=== PATIENT | female | born 1960 | race Caucasian/White ===

== ENCOUNTER → 2017-11-29 16:01 | Outpatient (CLI) | payer BC, SELFPAY ==
--- NOTE | 2017-11-29 16:15 | CT_ITS ---
STUDY: CT ABDOMEN AND PELVIS WITHOUT CONTRAST REASON FOR EXAM: Female, 57 years old. Right flank pain. History of kidney stones. RADIATION DOSAGE (If Supplied By Facility): CTDIvol = ( 8.44 ) mGy, DLP = ( 363.23 ) mGycm TECHNIQUE: Transaxial images were obtained from the dome of the diaphragm to the symphysis pubis without oral contrast, and without intravenous contrast. Sagittal and coronal images were reconstructed. Individualized dose optimization techniques were used for this CT. COMPARISON: None. FINDINGS: Limited views through the lower chest suggest a deflated right breast implant. Lung bases are clear. Normal liver. There is non-visualization of the gallbladder, which may be secondary to either contraction or a prior cholecystectomy. Normal spleen. Normal pancreas. Normal bilateral adrenal glands. Normal right kidney. Normal left kidney. No definite renal or ureteral stones are seen. There is no hydronephrosis on either side. Evaluation of the GI tract is limited by absence of oral contrast. Cannot exclude stomach wall thickening. No dilated loops of bowel or evidence for obstruction. Cannot exclude segmental thickening of the amaya of the small or large bowel. Cannot exclude enteritis or colitis. Moderate to marked diffuse fecal retention. Appendix within normal limits. Normal abdominal aorta. Normal inferior vena cava. There is retroperitoneal lymphadenopathy with enlarged nodes greater than 10-15mm in the short axis. Normal urinary bladder. There is absence of the uterus consistent with a prior hysterectomy. Normal abdominal wall. There are diffuse degenerative changes of the visualized lumbar spine. Bilateral pars defects of L5 with mild anterolisthesis. CT/Abdomen/Pelvis without Cont IMPRESSION: There is no definite acute abdomen abnormality in the abdomen and pelvis. Evaluation of the GI tract is limited. Electronically Signed: Dominic Hunter MD at 18:43 EST , Service support ,
== END ==
PROVIDERS: Visit Provider Family Medicine Geriatric Medicine
DX: N39.0 Urinary tract infection, site not specified (principal)
CPT/HCPCS: 74176; 87086; 87088

== ENCOUNTER → 2018-05-17 12:05 | Outpatient (CLI) | payer BC, SELFPAY ==
[2018-05-17 12:44] LABS: Color, Urine Yellow (Yellow); Glucose, Dipstick Normal (Normal); Ketone-Dipstick Negative (Negative); Leukocyte Esterase-Dipstick 25 /ul (Negative); Nitrite-Dipstick Negative (Negative); Occult Blood-Urine 25 /ul (Negative); Protein-Dipstick Negative (Negative); Specific Gravity, Urine 1.015 (1.002-1.030); Urine Bilirubin Dipstick Negative (Negative); Urine Clarity Clear (Clear); Urine Urobilinogen Normal (Normal); Urine pH 6.5 (5.0 - 8.0)
== END ==
PROVIDERS: Family Provider Family Medicine Geriatric Medicine; PCP Family Medicine Geriatric Medicine; Visit Provider Urology
DX: R10.30 Lower abdominal pain, unspecified (principal)
CPT/HCPCS: 81002; 87086; 87088

== ENCOUNTER → 2018-05-21 13:22 | Outpatient (CLI) | payer BC, SELFPAY ==
--- NOTE | 2018-05-21 13:25 | RAD_ITS ---
CLINICAL HISTORY: Female, 57 years old. Recurrent urinary tract infections. Bilateral flank pain. PROCEDURE: Cystogram with fluoroscopic imaging. FLUOROSCOPY TIME (if supplied): (0:56) minutes/seconds TECHNIQUE: Initial detail assembler image of the abdomen and pelvis (KUB) is obtained. 300 mL of Cystografin iodinated contrast filled the urinary bladder in a retrograde fashion through the urinary catheter under fluoroscopic observation by Dr. Rhoades. Radiology nurse Ale had previously inserted in the urinary catheter into the bladder. Imaging was performed. Initially the urinary catheter drained only 70 cc of contrast. Patient then had the urinary catheter removed and voided. FINDINGS: Urinary bladder is distended with identified contrast but shows no reflux, filling defect or extravasation of contrast. Postvoid imaging shows no urinary bladder contrast. RAD/Voiding Urethrocystography IMPRESSION: Incomplete emptying of the urinary bladder of iodinated contrast with urinary catheter in place. Complete emptying of urinary bladder of iodinated contrast with normal voiding. Clinical correlation recommended for bladder outlet syndrome. Otherwise, negative cystogram study. Electronically Signed: Scott Rhoades, at 15:06 EDT Tel , Service support ,
--- NOTE | 2018-05-21 13:29 | CT_ITS ---
STUDY: CT ABDOMEN AND PELVIS WITH CONTRAST REASON FOR EXAM: Female, 57 years old. Flank pain, UTI RADIATION DOSAGE (If Supplied By Facility): CTDIvol = ( 12.22 ) mGy, DLP = ( 1057.93 ) mGycm TECHNIQUE: Transaxial images were obtained from the dome of the diaphragm to the symphysis pubis without oral contrast. 100 ml of Isovue 250 contrast was administered. Sagittal and coronal images were reconstructed. Delayed images are performed. Individualized dose optimization techniques were used for this CT. COMPARISON: 11/29/2017 FINDINGS: The visualized lung bases are unremarkable. The visualized portions of the heart are within normal limits. There is partial visualization of bilateral breast implants. The right breast implant appears to be ruptured. Normal liver. There is non-visualization of the gallbladder, which may be secondary to either contraction or a prior cholecystectomy. Normal spleen. Normal pancreas. Normal bilateral adrenal glands. There is a 1 cm cyst at the superior pole of the right kidney. Normal left kidney. Normal visualized stomach. Normal small intestine. Normal colon. The appendix is visualized and appears normal. Normal abdominal aorta. Normal inferior vena cava. Normal retroperitoneum. Normal urinary bladder. There is absence of the uterus consistent with a prior hysterectomy. Normal abdominal wall. There are diffuse degenerative changes of the visualized lumbar spine. CT/Abdomen/Pelvis W IV Cont ONLY IMPRESSION: No bowel obstruction or acute renal pathology. Nonacute findings, as detailed above. Electronically Signed: Leonard Lloyd DO at 14:44 EDT Tel , Service support ,
--- NOTE | 2018-05-21 14:10 | NURSING ---
16 TURKISH TORRES CATHETER INSERT USING STERILE TECHNIQUE FOR CYSTOGRAM. PT TOLERATED WELL. CATHETER REMOVED AFTER 10ML BALLOON DEFLATED FOLLOWING CYSTOGRAM.
== END ==
PROVIDERS: Family Provider Family Medicine Geriatric Medicine; PCP Family Medicine Geriatric Medicine; Visit Provider Urology
DX: N10 Acute pyelonephritis (principal)
CPT/HCPCS: 51600; 51702; 74177; 74455; Q9965; Q9967

== ENCOUNTER 2018-05-22 17:50 | Emergency (ER) | payer BC, SELFPAY ==
[2018-05-22 17:51] VITALS: BP 120/78; PULSE 84; RESP 16; TEMP 37; O2SAT 97; BMI 29.2
[2018-05-22] MEDS: MethylPREDNISolone 125 MG/2 ML Vial IV (18:13)
[2018-05-22] MEDS: DiphenhydrAMINE 50 MG/ML Syringe 25 MG IV (18:13)
[2018-05-22] MEDS: 0.9% Normal Saline 1,000 ML 150 ML IV (18:13)
[2018-05-22 18:16] VITALS: O2SAT 92
[2018-05-22 19:42] VITALS: BP 123/71; PULSE 75; RESP 18; O2SAT 95
[2018-05-22 20:20] VITALS: BP 114/62; PULSE 74; RESP 17; O2SAT 93
[2018-05-22 21:22] VITALS: BP 100/59; PULSE 68; RESP 18; O2SAT 99
--- NOTE | 2018-05-22 21:49 | ED.VISSUMM ---
- ER Visit Summary Date of Service: 05/22/18 Chief Complaint: [Allergic reaction] History of Present Illness: The patient is a 57 F [presents the emergency department an allergic reaction to bee sting. Patient states that she was stung by a bee on the left hand 15 minutes ago. Patient did use her EpiPen. Patient also took 2 Benadryl at home. Patient complains of throat tightness and some wheezing. Patient has history of anaphylactic reaction to bee stings.] Physical Examination: [HEENT-PERRLA, EOMI. Cranial nerves II through XII grossly intact. TMs clear. Mucous membranes moist. No adenopathy. No angioedema Cardiovascular-regular rate and rhythm without murmur or ectopy Lungs-good aeration bilaterally, patient has faint X Tory wheezes bilaterally. No accessory muscle use or retractions. Abdomen-normoactive bowel sounds, soft, nontender, no rebound or rigidity, no peritoneal signs. Skin exam-no rashes noted. Patient had one small area of faint erythema to the left hand at the base of the thumb. Extremities-intact ?4, normal range of motion, normal pulses, atraumatic] Test Results: [None indicated] Emergency Department Course and Treatment: [Patient was medicated with Solu-Medrol, Benadryl, and Pepcid. Patient was observed for 4 hours. Patient symptoms completely resolved.] Treatment Plan: [Patient will be dispensed an EpiPen and will be given a prescription for prednisone for 3 days] Disposition: [Discharged home stable condition] Impression: [Allergic reaction to bee sting] This note was generated with [employer] dictation software. It may contain incorrect words, spelling, and punctuation that were not noted in review of the chart prior to signing ED Disposition - Plan for ED Patient: Chief Complaint: Allergic Reaction Referrals: Magdy Tate Chi, MD [Primary Care Provider] -
--- NOTE | 2018-05-22 21:51 | ED.DEP ---
ED Disposition - Plan for ED Patient: Chief Complaint: Allergic Reaction Instructions: ED Bite Sting Insect Gen Allergic React Prescriptions: Prednisone [Deltasone] 20 mg PO BID #6 tab Referrals: Magdy Tate Chi, MD [Primary Care Provider] - As Needed
[2018-05-22 21:59] VITALS: BP 120/88; PULSE 73; RESP 20; O2SAT 95
== END 2018-05-22 22:00 | disposition home or self-care (01) ==
LOC: ED 18:51
PROVIDERS: Emergency Provider Emergency Medicine; Family Provider Family Medicine Geriatric Medicine; PCP Family Medicine Geriatric Medicine
DX: T63.441A Toxic effect of venom of bees, accidental (unintentional), initial encounter (principal); R06.2 Wheezing; R09.89 Other specified symptoms and signs involving the circulatory and respiratory systems; Y92.9 Unspecified place or not applicable
CPT/HCPCS: 96365; 96368; 96372; 96375; 99285; J7030; A4216; J3490

== ENCOUNTER 2018-06-15 17:31 | Emergency (ER) | payer BC, SELFPAY ==
[2018-06-15 17:32] VITALS: BP 117/77; PULSE 80; RESP 24; TEMP 36.6; O2SAT 98; BMI 28.1
[2018-06-15] MEDS: Racepinephrine HCl 0.5 ML VIAL.NEB. INHALATION (17:43)
[2018-06-15 17:44] VITALS: PULSE 87; RESP 16
[2018-06-15] MEDS: MethylPREDNISolone 125 MG/2 ML Vial IV (17:46)
[2018-06-15 18:02] VITALS: BP 122/60; PULSE 82; RESP 16; O2SAT 97
[2018-06-15 20:00] VITALS: BP 122/84; PULSE 79; RESP 16; O2SAT 94
--- NOTE | 2018-06-15 22:31 | ED.VISSUMM ---
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 She was stung 1050 minutes prior to presentation. She administered an EpiPen. She presents because of throat swelling difficulty breathing. She denies difficulty swallowing or breathing. There is been no drooling. There is change in voice. She denies orthostatic symptoms. Denies nausea, vomiting diarrhea. She denies rash. Physical Examination: Patient appears in respiratory distress with retraction and audible stridor. There is no swelling of the tongue or uvula. Pupils equal round reactive. Extra muscle intact. Nares patent. Lungs reveal no wheeze rales rhonchi. Heart is rapid and regular without murmur, gallop or rub. Abdomen soft nontender. There is no urticaria. Test Results: None Emergency Department Course and Treatment: IV was established. Since she administered an EpiPen and Benadryl she was treated with Pepcid and Solu-Medrol. She was observed for greater than 4 hours. Her symptoms have totally resolved and no recurrence. Treatment Plan: Since pharmacies are closed she was given an EpiPen from the emergency department and a prescription for EpiPen. Disposition: Discharged home in stable improved condition Impression: Anaphylaxis with angioedema secondary to hymenoptera envenomation This note was generated with [employer] dictation software. It may contain incorrect words, spelling, and punctuation that were not noted in review of the chart prior to signing ED Disposition - Plan for ED Patient: Disposition: Home or Assisted Living Chief Complaint: Allergic Reaction Instructions: ED Angioedema, ED Allergic Reaction General Other Prescriptions: Epinephrine [Epi Pen] 0.3 mg IM X1 #1 syringe Referrals: Magdy Tate Chi, MD [Primary Care Provider] - As Needed
[2018-06-15 23:34] VITALS: BP 115/73; PULSE 68; RESP 16; O2SAT 95
== END 2018-06-15 23:34 | disposition home or self-care (01) ==
PROVIDERS: Emergency Provider Emergency Medicine; Family Provider Family Medicine Geriatric Medicine; PCP Family Medicine Geriatric Medicine
DX: T63.441A Toxic effect of venom of bees, accidental (unintentional), initial encounter (principal); T78.2XXA Anaphylactic shock, unspecified, initial encounter; T78.3XXA Angioneurotic edema, initial encounter; F32.9 Major depressive disorder, single episode, unspecified
CPT/HCPCS: 94640; 96372; 96374; 96375; 99284; A4216; J3490

== ENCOUNTER → 2018-09-25 13:12 | Outpatient (CLI) | payer BC, SELFPAY ==
--- NOTE | 2018-09-25 13:15 | BI_ITS ---
MAMMOGRAPHY - BILATERAL DIAGNOSTIC REASON FOR EXAM: Female, 58 years old. History of right implant rupture. PERTINENT HISTORY: Non-contributory. TECHNIQUE: Digital bilateral breast azeem (3D mammographic acquisition) in the CC and MLO projections. 2-D mediolateral oblique (MLO) and craniocaudad (CC) views of both breasts were obtained. CAD: Full Field Digital Mammography with Computer Added Detection was performed. COMPARISON: No comparison mammograms available at this time. If any prior films become available, an addendum to this report can be generated. FINDINGS: Breast Composition: There are scattered areas of fibroglandular density. There are no dominant masses or suspicious calcifications. There is evidence of retraction and rupture of the right breast implant. The left breast implant is unremarkable. No other significant abnormalities are identified. BI/DIAG MAMM W/CAD, BILAT IMPRESSION: Retraction and rupture of the right breast implant. ASSESSMENT CATEGORY: BIRADS Category 2: Benign. A letter regarding these results will be sent to the patient by the facility within 30 days. Approximately 10% of breast cancers are not detected by mammography. A normal mammogram should not delay biopsy of a clinically suspicious abnormality. Electronically Signed: Roger Antonio MD at 15:27 EST Tel [phone], Service support ,
--- OUTSIDE RECORDS SUMMARY | 2018-11-11 17:09 | XMS RPT_ITS ---
:1960 Author Organization OHIP Care Team Providers Name Role Phone Bebeto, Magdy Chi Attending Unavailable Jo Vergara Attending Unavailable Jo Vergara Referring Unavailable Bebeto, Magdy Chi Primary Care Unavailable Jo Vergara Attending Unavailable Bebeto, Magdy Chi Primary Care Unavailable Jo Vergara Referring Unavailable Bebeto, Magdy Chi Primary Care Unavailable Ungur, Remus Attending Unavailable Bebeto, Magdy Chi Primary Care Unavailable Robert Garcia Attending Unavailable Jerry Dillard Attending Unavailable Bebeto, Magdy Chi Referring Unavailable Jerry Dillard Attending Unavailable Jerry Dillard Referring Unavailable Bebeto, Magdy Chi Primary Care Unavailable PROBLEMS PROBLEMS DATE TYPE CONDITION / CODE ATTENDING STATUS SOURCE 09/24/2018 Unknown N64.4 - Mastodynia Jerry Dillard Active [place] / N64.4(ICD-10) [facility] Repository 09/24/2018 Unknown Z98.82 - Breast Jerry Dillard Active [place] implant status / Community Z98.82(ICD-10) Hospital Repository 09/24/2018 Unknown T85.43XA - Leakage Jerry Dillard Active [place] of breast [facility] prosthesis and Hospital implant, initial Repository encounter / T85.43XA(ICD-10) 09/24/2018 Unknown N65.1 - Jerry Dillard Active [facility] Disproportion of Community reconstructed Hospital breast / Repository N65.1(ICD-10) 09/24/2018 Unknown T85.44XA - Capsular Jerry Dillard Active [place] contracture of Community breast implant, Hospital initial encounter / Repository T85.44XA(ICD-10) 09/23/2018 Unknown R06.02 - Shortness Garcia, Robert Active [facility] of breath / Community R06.02(ICD-10) Hospital Repository 09/23/2018 Unknown T63.441A - Toxic Ungur, Remus Active [place] effect of venom of [facility] bees, accidental Hospital (unintentional), Repository initial encounter / T63.441A(ICD-10) PROCEDURES PROCEDURES No Procedure Records FoundRESULTS RESULTS DIAG MAMM W/CAD, Observed: 09/25/2018 Status: F Source: [place] BILAT 1:15 PM [facility] REPOSITORY [facility] Imaging Services [address] [place] [address] DIAG MAMM W/CAD, BILAT MR#: [id number] Acct: [id number] Name: PANCHO FIGUEROA Rep #: [id number] : 1960 F 58 From: Roger Antonio MD PCP: Bebeto GALLEGOS,Magdy [facility] Status: REG CLI Study: DIAG MAMM W/CAD, BILAT Date of Exam: 09/25/18 Exam# [id number] Ordering Dr: Jerry Dillard MD ADDENDUM by Roger Antonio MD on 10/02/18 at 0812 ADDENDUM This is an addendum report. Prior ocular examination dated June 13, 2013 have been made available. Stable examination. Complete retraction of the right breast implant. Electronically Signed: Roger Antonio MD at 8:12 EST Tel [phone], Service support , 10/02/18811 Date cc: Jerry Dillard MD; Magdy Tate MD * Signed ADDENDUM by Roger Antonio MD on 10/02/18 at 0812 BI/DIAG MAMM W/CAD, BILAT 10/02/18817 Date cc: Jerry Dillard MD; Magdy Tate MD * Signed MAMMOGRAPHY - BILATERAL DIAGNOSTIC REASON FOR EXAM: Female, 58 years old. History of right implant rupture. PERTINENT HISTORY: Non-contributory. TECHNIQUE: Digital bilateral breast azeem (3D mammographic acquisition) in the CC and MLO projections. 2-D mediolateral oblique (MLO) and craniocaudad (CC) views of both breasts were obtained. CAD: Full Field Digital Mammography with Computer Added Detection was performed. COMPARISON: No comparison mammograms available at this time. If any prior films become available, an addendum to this report can be generated. FINDINGS: Breast Composition: There are scattered areas of fibroglandular density. There are no dominant masses or suspicious calcifications. There is evidence of retraction and rupture of the right breast implant. The left breast implant is unremarkable. No other significant abnormalities are identified. BI/DIAG MAMM W/CAD, BILAT IMPRESSION: Retraction and rupture of the right breast implant. ASSESSMENT CATEGORY: BIRADS Category 2: Benign. A letter regarding these results will be sent to the patient by the facility within 30 days. Approximately 10% of breast cancers are not detected by mammography. A normal mammogram should not delay biopsy of a clinically suspicious abnormality. Electronically Signed: Roger Antonio MD at 15:27 EST Tel [phone], Service support , CC: Jerry Dillard MD; Magdy Tate MD Senior Test Analyst: Signed PLASTIC SURGERY Observed: 2018 Status: F Source: [facility] VISIT REPORT 10:47 AM [facility] REPOSITORY [facility] [address] [place] [address] OFFICE VISIT Date of Service: 09/18/18 MR#: [id number] Acct: [id number] Name: PANCHO FIGUEROA Rep #: [id number] : 1960 Provider: Jerry Dillard MD Age/Sex: 57/F Location: [facility] Status: Signed Intake Vital Signs09/18/18 Height 5 ft 1.5 in 09/18/18 Weight: 157 lb 6 oz Intake Visit Reasons: evaluation breast reconstruction Chucking Machine Set Up Operator Required: No Accompanied by: None Is patient in pain?: Yes (BILATERAL BREAST PAIN TIGHTNESS ) Pain scale (1-10): 1 Allergies bee venom protein (honey bee) Allergy (Severe, Verified 09/18/18 11:41) Anaphylaxis Sulfa (Sulfonamide Antibiotics) Allergy (Verified 09/18/18 11:41) ALLERGY Medications omeprazole magnesium 20 mg tablet,delayed release 20 mg PO DAILY 09/18/18 [History Confirmed 09/18/18] paroxetine 40 mg tablet 40 mg PO DAILY 09/18/18 [History Confirmed 09/18/18] Is last menstrual period known: No Post menopausal: Yes Patient : No PFSH Medical History Anxiety and depression (Acute) GERD (gastroesophageal reflux disease) (Acute) Gallstones (Acute) History of endoscopy (Acute) Kidney stones (Acute) UTI (urinary tract infection) (Acute) Surgical History History of 3 sections (Acute) History of abdominoplasty (Acute) History of breast augmentation (Acute) History of cholecystectomy (Acute) History of colonoscopy (Acute) History of partial hysterectomy (Acute) Family History Unknown No problems noted. Social History Smoking Status: Never smoker alcohol intake: current substance use type: does not use additional social history: DOES NOT USE ASPIRIN DOES NOT USE IBUPROFEN HPI evaluation breast reconstruction: Details: HISTORY OF PRESENT ILLNESS 58 year old woman presents with increased tightness in her right breast and the right breast being a little smaller than the left breast. She had saline implants placed back in 1999. She is not sure if the implants were placed on top of the muscle or underneath the muscle. Before the implants, her bra size was 36B and after the implants it was 38D. She denies any trauma. She denies any nipple discharge. She states there is some discomfort when the implants are bumped, more so on the right. She also has some associated neck and thoracic back pain that has been increasing over the last couple of years. She thinks her last mammogram was about 4 years ago. She recently had an Ultrasound done of the abdomen because of urinary issues, and she was told that the right breast implant was ruptured. She denies any fever. She presents at this time for further evaluation and treatment. REVIEW OF SYSTEMS General - Denies fever, fatigue, and weight loss. Eyes - Denies cataracts and glaucoma. ENT - Denies nasal congestion and sore throat. Endocrine - Denies excessive thirst and urination. Had saline breast implants placed in 1999. Skin - Denies suspicious lesions and skin cancer. Musculoskeletal - Denies joint pain, joint stiffness, weakness of muscles and joints, back pain, and arthritis. Neuro - Denies headaches. Cardiovascular - Denies chest pain, fatigue, and shortness of breath with exertion. Psych - Denies anxiety. Has depression. Respiratory - Denies chronic cough and shortness of breath. Gastrointestinal - Denies nausea, vomiting, diarrhea, and constipation. Hematologic - Denies abnormal bruising and bleeding. Genitourinary - Has hematuria and incontinence. Denies urinary frequency. PHYSICAL EXAMINATION General - Alert and Oriented. Bra size is 38 D. Before the implants it was 36 B. HEENT - PERRL. EOMI. Throat is clear. Neck - Supple and no bony tenderness. There is some pericervical soft tissue tenderness. No cervical adenopathy. Breasts - Soft and no masses palpable. Slight tenderness with palpation, more so on the right. No axillary adenopathy. Some thickened scarring present on the right from a capsular contracture. The right breast is a little smaller than the left breast. Distance from the midclavicular line on the left to the nipple is 29 cm and from the nipple to the inframammary fold is 10 cm. Distance from the midclavicular line on the right to the nipple is 27 cm and from the nipple to the inframammary fold is 9 cm. The nipple areolar complex diameter is 7 cm bilaterally. Stage II ptosis present. Lungs - Clear to auscultation. Heart - Regular rate and rhythm. Abdomen - Soft and nondistended. Extremities - FROM. No axillary adenopathy. Radial pulses are palpable. Back - No bony tenderness. There is some perivertebral soft tissue tenderness in the thoracic area. Neuro - CN II-XII grossly intact. Psych - Normal mood and affect. ASSESSMENT 1. Bilateral breast pain. 2. Ruptured right breast implant. 3. Disproportion reconstructed breast. 4. Capsular contracture right breast implant. 5. History of bilateral saline breast implants. PLAN Discussed various breast reconstruction options with the patient. Since she is not sure if the implants were placed on top of the muscle or underneath the muscle, we will need to get the old records. She states the surgery was done at a [facility] in [place]. With the degree of ptosis present, I suspect the implants were placed on top of the muscle. Her last mammogram was done about 4 years ago. Will need a mammogram before surgery. Depending on the mammogram results, may need an MRI. Patient states she doesn't need the implants anymore and would like to have them removed if there is evidence of rupture. She is not interested in having the implants replaced at this time. Since there is still some shape to the right breast, a leak can still occur as long as the capsule is intact. Once there is a rent in the capsule, the saline will leak out and the breast will flatten. That hasn't happened yet. Once removed, may need a capsulectomy on the right because of the contracture which can also contribute to a smaller shape. She would like improved shape and contour of the breast. Because of her ptosis, a mastopexy would provide that improvement. If the implants were placed underneath the muscle, then the mastopexy can be done at the same time. If the implants were placed on top of the muscle, then the mastopexy would be done at a later date to allow adequate healing. There is increased risk of wound healing problems and nipple vascular issues if the implants were placed on top of the muscle even if done at a later date. The risk is greater if done at the same time. Patient will decide if she wants to take that risk at the appropriate time. She had also mentioned a possible breast reduction. At the present time, it is hard to tell if some of her back and neck pain is due her large breasts or due to the presence of her implants. In this situation, after the implants are removed, would wait several months. If her symptomatology is the same, then can send a letter to her insurance carrier for medical approval. She will followup for further evaluation after her studies are completed and the old records have been obtained. If ruptured, will send a letter to her insurance carrier for medical approval. She is aware that insurance may not cover these procedures and that she would be financially responsible. She is aware of that possibility and wishes to proceed. Assessment AND Plan Problems 1. Painful breasts N64.4 2. Ruptured right breast implant T85.43XA 3. Disproportion of reconstructed breast N65.1 4. Capsular contracture of breast implant T85.44XA 5. H/O bilateral breast implants Z98.82 Orders Orders: Coding Level of Care Code Off vis,new,level 4 Diagnoses Painful breasts N64.4 Ruptured right breast implant T85.43XA Disproportion of reconstructed breast N65.1 Capsular contracture of breast implant T85.44XA H/O bilateral breast implants Z98.82 09/22/18 1047 <Electronically signed by Jerry Dillard MD> Date [facility] Signature: Date (if applicable) CC: Magdy Tate MD EMERGENCY DEPARTMENT Observed: 06/15/2018 Status: F Source: [facility] SUMMARY 10:34 PM [facility] REPOSITORY [facility] Medical Records Department [address] [place] [address] Emergency Department Summary 06/15/18 2231 MR#: [id number] Acct: [id number] Name: PANCHO FIGUEROA Rep #: [id number] : 1960 57 From: Robert Garcia MD PCP: Magdy Tate MD, Chi Status: REG ER - ER Visit Summary Date of Service: 06/15/18 Chief Complaint: Difficulty breathing and throat swelling after hymenoptera envenomation History of Present Illness: The patient is a 57 F who has 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 She was stung 1050 minutes prior to presentation. She administered an EpiPen. She presents because of throat swelling difficulty breathing. She denies difficulty swallowing or breathing. There is been no drooling. There is change in voice. She denies orthostatic symptoms. Denies nausea, vomiting diarrhea. She denies rash. Physical Examination: Patient appears in respiratory distress with retraction and audible stridor. There is no swelling of the tongue or uvula. Pupils equal round reactive. Extra muscle intact. Nares patent. Lungs reveal no wheeze rales rhonchi. Heart is rapid and regular without murmur, gallop or rub. Abdomen soft nontender. There is no urticaria. Test Results: None Emergency Department Course and Treatment: IV was established. Since she administered an EpiPen and Benadryl she was treated with Pepcid and Solu-Medrol. She was observed for greater than 4 hours. Her symptoms have totally resolved and no recurrence. Treatment Plan: Since pharmacies are closed she was given an EpiPen from the emergency department and a prescription for EpiPen. Disposition: Discharged home in stable improved condition Impression: Anaphylaxis with angioedema secondary to hymenoptera envenomation This note was generated with [employer] dictation software. It may contain incorrect words, spelling, and punctuation that were not noted in review of the chart prior to signing ED Disposition - Plan for ED Patient: Disposition: Home or Assisted Living Chief Complaint: Allergic Reaction Instructions: ED Angioedema, ED Allergic Reaction General Other Prescriptions: Epinephrine [Epi Pen] 0.3 mg IM X1 #1 syringe Referrals: Magdy Tate Chi, MD [Primary Care Provider] - As Needed What to do if you have Problems For any increased pain, shortness of breath, bleeding, nausea or vomiting, chest pain, or any unexpected problems, contact your Primary Care Provider. Call [facility] ([phone]) or report to the closest Emergency Room. Call 911 if necessary. 06/15/182233 <Electronically signed by Robert Garcia MD> Date Robert Garcia MD Cosigner Signature (If Indicated): Date CC: Magdy Tate MD DISCHARGE INSTRUCTION Observed: 05/22/2018 Status: F Source: [place] 9:52 PM [facility] REPOSITORY [facility] Medical Records Department [address] [place] [address] [place] [address] Discharge Instruction 05/22/182150 MR#: [id number] Acct: [id number] Name: PANCHO FIGUEROA Rep #: [id number] : 1960 57 From: Bridgre Kaur DO PCP: Magdy Tate MD, Chi Status: REG ER ED Disposition - Plan for ED Patient: Chief Complaint: Allergic Reaction Instructions: ED Bite Sting Insect Gen Allergic React Prescriptions: Prednisone [Deltasone] 20 mg PO BID #6 tab Referrals: Magdy Tate Chi, MD [Primary Care Provider] - As Needed What to do if you have Problems For any increased pain, shortness of breath, bleeding, nausea or vomiting, chest pain, or any unexpected problems, contact your Primary Care Provider. Call [facility] ([phone]) or report to the closest Emergency Room. Call 911 if necessary. 05/22/182151 <Electronically signed by Bridger Kaur DO> Date Bridger Kaur DO Cosigner Signature (If Indicated): Date CC: Magdy Tate MD EMERGENCY DEPARTMENT Observed: 05/22/2018 Status: F Source: [place] SUMMARY 9:51 PM [facility] REPOSITORY [facility] Medical Records Department [address] [place] [address] Emergency Department Summary 05/22/18 2149 MR#: [id number] Acct: [id number] Name: PANCHO FIGUEROA Rep #: [id number] : 1960 57 From: Bridger Kaur DO PCP: Magdy Tate MD, Chi Status: REG ER - ER Visit Summary Date of Service: 05/22/18 Chief Complaint: [Allergic reaction] History of Present Illness: The patient is a 57 F [presents the emergency department an allergic reaction to bee sting. Patient states that she was stung by a bee on the left hand 15 minutes ago. Patient did use her EpiPen. Patient also took 2 Benadryl at home. Patient complains of throat tightness and some wheezing. Patient has history of anaphylactic reaction to bee stings.] Physical Examination: [HEENT-PERRLA, EOMI. Cranial nerves II through XII grossly intact. TMs clear. Mucous membranes moist. No adenopathy. No angioedema Cardiovascular-regular rate and rhythm without murmur or ectopy Lungs-good aeration bilaterally, patient has faint X Tory wheezes bilaterally. No accessory muscle use or retractions. Abdomen-normoactive bowel sounds, soft, nontender, no rebound or rigidity, no peritoneal signs. Skin exam-no rashes noted. Patient had one small area of faint erythema to the left hand at the base of the thumb. Extremities-intact 4, normal range of motion, normal pulses, atraumatic] Test Results: [None indicated] Emergency Department Course and Treatment: [Patient was medicated with Solu-Medrol, Benadryl, and Pepcid. Patient was observed for 4 hours. Patient symptoms completely resolved.] Treatment Plan: [Patient will be dispensed an EpiPen and will be given a prescription for prednisone for 3 days] Disposition: [Discharged home stable condition] Impression: [Allergic reaction to bee sting] This note was generated with [employer] software. It may contain incorrect words, spelling, and punctuation that were not noted in review of the chart prior to signing ED Disposition - Plan for ED Patient: Chief Complaint: Allergic Reaction Referrals: Magdy Tate Chi, MD [Primary Care Provider] - What to do if you have Problems For any increased pain, shortness of breath, bleeding, nausea or vomiting, chest pain, or any unexpected problems, contact your Primary Care Provider. Call [facility] ([phone]) or report to the closest Emergency Room. Call 911 if necessary. 05/22/18 2151 <Electronically signed by Bridger Kaur DO> Date Bridger Kaur DO Cosigner Signature (If Indicated): Date CC: Magdy Tate MD ABDOMEN/PELVIS W IV CONT Observed: 05/21/2018 Status: F Source: [place] ONLY 1:29 PM [facility] REPOSITORY [facility] Imaging Services [address] [place] [address] Abdomen/Pelvis W IV Cont ONLY MR#: [id number] Acct: [id number] Name: PANCHO FIGUEROA Rep #: [id number] : 1960 F 57 From: Loenard Lloyd DO PCP: Magdy Tate MD, Chi Status: REG CLI Study: Abdomen/Pelvis W IV Cont ONLY Date of Exam: 05/21/18 Exam# [id number] Ordering Dr: Jo Vergara MD STUDY: CT ABDOMEN AND PELVIS WITH CONTRAST REASON FOR EXAM: Female, 57 years old. Flank pain, UTI RADIATION DOSAGE (If Supplied By Facility): CTDIvol = ( 12.22 ) mGy, DLP = ( 1057.93 ) mGycm TECHNIQUE: Transaxial images were obtained from the dome of the diaphragm to the symphysis pubis without oral contrast. 100 ml of Isovue 250 contrast was administered. Sagittal and coronal images were reconstructed. Delayed images are performed. Individualized dose optimization techniques were used for this CT. COMPARISON: 11/29/2017 FINDINGS: The visualized lung bases are unremarkable. The visualized portions of the heart are within normal limits. There is partial visualization of bilateral breast implants. The right breast implant appears to be ruptured. Normal liver. There is non-visualization of the gallbladder, which may be secondary to either contraction or a prior cholecystectomy. Normal spleen. Normal pancreas. Normal bilateral adrenal glands. There is a 1 cm cyst at the superior pole of the right kidney. Normal left kidney. Normal visualized stomach. Normal small intestine. Normal colon. The appendix is visualized and appears normal. Normal abdominal aorta. Normal inferior vena cava. Normal retroperitoneum. Normal urinary bladder. There is absence of the uterus consistent with a prior hysterectomy. Normal abdominal wall. There are diffuse degenerative changes of the visualized lumbar spine. CT/Abdomen/Pelvis W IV Cont ONLY IMPRESSION: No bowel obstruction or acute renal pathology. Nonacute findings, as detailed above. Electronically Signed: Leonard Lloyd DO at 14:44 EDT Tel , Service support , CC: Jo Vergara MD; Magdy Tate MD Senior Test Analyst: Signed VOIDING URETHROCYSTOGRAPHY Observed: 05/21/2018 Status: F Source: [place] 1:28 PM [facility] REPOSITORY [facility] Imaging Services [address] [place] [address] Voiding Urethrocystography MR#: [id number] Acct: [id number] Name: PANCHO FIGUEROA Rep #: [id number] : 1960 F 57 From: Scott Rhoades MD PCP: Bebeto GALLEGOS,Magdy Leblanc Status: REG CLI Study: Voiding Urethrocystography Date of Exam: 05/21/18 Exam# [id number] Ordering Dr: Jo Vergara MD CLINICAL HISTORY: Female, 57 years old. Recurrent urinary tract infections. Bilateral flank pain. PROCEDURE: Cystogram with fluoroscopic imaging. FLUOROSCOPY TIME (if supplied): (0:56) minutes/seconds TECHNIQUE: Initial credit portfolio manager image of the abdomen and pelvis (KUB) is obtained. 300 mL of Cystografin iodinated contrast filled the urinary bladder in a retrograde fashion through the urinary catheter under fluoroscopic observation by Dr. Rhoades. Radiology nurse Ale had previously inserted in the urinary catheter into the bladder. Imaging was performed. Initially the urinary catheter drained only 70 cc of contrast. Patient then had the urinary catheter removed and voided. FINDINGS: Urinary bladder is distended with identified contrast but shows no reflux, filling defect or extravasation of contrast. Postvoid imaging shows no urinary bladder contrast. RAD/Voiding Urethrocystography IMPRESSION: Incomplete emptying of the urinary bladder of iodinated contrast with urinary catheter in place. Complete emptying of urinary bladder of iodinated contrast with normal voiding. Clinical correlation recommended for bladder outlet syndrome. Otherwise, negative cystogram study. Electronically Signed: Scott Rhoades, at 15:06 EDT Tel , Service support , CC: Jo Vergara MD; Magdy Tate MD Senior Test Analyst: Signed URINALYSIS, ROUTINE Collected: 05/17/2018 Status: F Source: [place] (DIPSTICK) 12:17 PM [facility] REPOSITORY Order Comment: How was Urine Obtained? CLEAN CATCH TYPE CODE TESTS RESULT OUT OF RANGE REFERENCE UNITS LAB L400.3000 Yellow COLOR Normal Yellow LAB L400.3050 Clear Normal CLARITY Clear LAB L400.3200 Normal mg/dl Normal GLUCOSE, UR Normal LAB L400.3300 Negative mg/dL Normal BILIRUBIN URINE Negative LAB L400.3400 Negative mg/dl Normal KETONE UR Negative LAB L400.3465 1.002-1.030 Normal SP.GR. DIPSTX 1.015 LAB L400.3550 5.0 - 8.0 pH UR Normal 6.5 LAB L400.3600 Negative mg/dl PROT Normal DIPSTX Negative LAB L400.3700 Normal mg/dl Normal UROBILI Normal LAB L400.3750 Negative Normal NITRITE UR Negative LAB L400.3780 Negative /ul High 25 OCCULT BLOOD-UR LAB L400.3800 Negative /ul High LEUK 25 ESTERASE Performed By: #### L400.2010 #### [facility] [address] [place], [address] Observed: 05/17/2018 Status: F Source: DILL[place] CULTURE, URINE 12:14 PM [facility] REPOSITORY Urine Culture Below infection level. Possible skin contamination. ORGANISM 1: Mixed Gram Positive Organisms [place] Count 1000-10,000 Performed By: #### M100.0650 #### [facility] [address] [facility] [place], [address] ABDOMEN/PELVIS WITHOUT Observed: 11/29/2017 Status: F Source: DILLAN CONT 4:15 PM [facility] REPOSITORY [facility] Imaging Services [address] [place] [address] Abdomen/Pelvis without Cont MR#: [id number] Acct: [id number] Name: AFIA FIGUEROA Rep #: [id number] : 1960 F 57 From: Dominic Hunter MD PCP: Status: REG CLI Study: Abdomen/Pelvis without Cont Date of Exam: 11/29/17 Exam# [id number] Ordering Dr: Magdy Tate MD STUDY: CT ABDOMEN AND PELVIS WITHOUT CONTRAST REASON FOR EXAM: Female, 57 years old. Right flank pain. History of kidney stones. RADIATION DOSAGE (If Supplied By Facility): CTDIvol = ( 8.44 ) mGy, DLP = ( 363.23 ) mGycm TECHNIQUE: Transaxial images were obtained from the dome of the diaphragm to the symphysis pubis without oral contrast, and without intravenous contrast. Sagittal and coronal images were reconstructed. Individualized dose optimization techniques were used for this CT. COMPARISON: None. FINDINGS: Limited views through the lower chest suggest a deflated right breast implant. Lung bases are clear. Normal liver. There is non-visualization of the gallbladder, which may be secondary to either contraction or a prior cholecystectomy. Normal spleen. Normal pancreas. Normal bilateral adrenal glands. Normal right kidney. Normal left kidney. No definite renal or ureteral stones are seen. There is no hydronephrosis on either side. Evaluation of the GI tract is limited by absence of oral contrast. Cannot exclude stomach wall thickening. No dilated loops of bowel or evidence for obstruction. Cannot exclude segmental thickening of the amaya of the small or large bowel. Cannot exclude enteritis or colitis. Moderate to marked diffuse fecal retention. Appendix within normal limits. Normal abdominal aorta. Normal inferior vena cava. There is retroperitoneal lymphadenopathy with enlarged nodes greater than 10-15mm in the short axis. Normal urinary bladder. There is absence of the uterus consistent with a prior hysterectomy. Normal abdominal wall. There are diffuse degenerative changes of the visualized lumbar spine. Bilateral pars defects of L5 with mild anterolisthesis. CT/Abdomen/Pelvis without Cont IMPRESSION: There is no definite acute abdomen abnormality in the abdomen and pelvis. Evaluation of the GI tract is limited. Electronically Signed: Dominic Hunter MD at 18:43 EST , Service support , CC: Magdy Tate MD Senior Test Analyst: Signed Observed: 11/29/2017 Status: F Source: EWING CULTURE, URINE 4:04 PM [facility] REPOSITORY Urine Culture Below infection level. ORGANISM 1: Mixed Gram Positive Organisms [place] Count 1000-10,000 Performed By: #### M100.0650 #### [facility] [place], [address] ALLERGIES ALLERGIES DATE TYPE / CODE NAME / CODE REACTION SEVERITY SOURCE 09/23/2018 Drug Sulfa Unknown Unknown [place] Allergy/416 (Sulfonamide Community 835861(SNOM Antibiotics)/F Hospital ED CT) 871014370(RXNO Repository RM) 09/23/2018 Drug bee venom Anaphylaxis Unknown [place] Allergy/416 protein (honey Community 968989(SNOM bee)/[id number] Hospital ED CT) 5(RXNORM) Repository ENCOUNTERS ENCOUNTERS ADMIT/DISCHARGE ACCOUNT ADMITTING ENCOUNTER LOCATION SOURCE NUMBER CLASS 09/25/2018 [id number] Ambulatory [place] 6 [facility] ing:OPUS Repository 09/18/2018/ [id number] Ambulatory BMSBuilding:B [place] 8 0 MS.WPS [facility] Repository 06/15/2018/ [id number] Emergency [place] 8 7 [facility] ing:ED Repository 05/22/2018/ [id number] Emergency [place] 8 2 [facility] ing:ED Repository 05/21/2018 [id number] Ambulatory [place] 6 [facility] ing:RAD Repository 05/17/2018 [id number] Ambulatory [place] 3 [facility] ing:LAB.FUTUR Repository E 11/29/2017 [id number] Ambulatory [place] 3 [facility] ing:CT Repository PAYERS PAYERS ENCOUNTER GUARANTOR PAYER SUBSCRIBER SOURCE 09/25/2018 PANCHO CHANEY LYNCHDOB: [place] [id number] N Insurance:ANTHEMPolic [id number] [employer] MARKET y Number: [place], [place] [id number] Repository 27921Nsq: ([phone]) Date:4157-21-57RC [phone] () [address] [place] [address]69[address]DJ: 09/25/2018 Secondary NOT GIVENUNK [place] Insurance:SELF PAY [facility] Number: Effective Repository Date:2018-09-19 09/18/2018 PANCHO CHANEY LYNCHDOB: [place] [id number] N Insurance:ANTHEMPolic [id number] [facility] y Number: [place], [place] [id number] Repository [address]98[address]Dkk: ([phone]) Date:8066-78-78[phone] () [id number] [place] [address] 77374BT: 09/18/2018 Secondary NOT GIVENUNK [place] Insurance:SELF PAY [facility] Number: Effective Repository Date:2018-09-18 06/15/2018 PANCHO CHANEY LYNCHDOB: [place] [id number] N Insurance:ANTHEMPolic [id number] Community MARKET y Number: [place], [place] [id number] Repository [address]Iqy: ([phone]) Date:7445-16-56LI [phone] () [place] BENSON [address]MF: 06/15/2018 Secondary NOT GIVENUNK [place] Insurance:SELF PAY [facility] Number: Effective Repository Date:2018-06-15 05/22/2018 PANCHO CHANEY LYNCHDOB: [place] [id number] N Insurance:ANTHEMPolic [id number] Community MARKET y Number: [place], [place] [id number] Repository [address]Jry: (330) Date:8083-75-18VK [phone] () [id number], [place] [address]ZK: 05/22/2018 Secondary NOT GIVENUNK [place] Insurance:SELF PAY [facility] Number: Effective Repository Date:2018-05-22 05/21/2018 PANCHO CHANEY LYNCHDOB: [place] [id number] N Insurance:ANTHEMPolic [id number] Community MARKET y Number: [place], [place] [id number] Repository 13366Ezd: (330) Date:7656-34-75BN [phone] () [id number] HALL [address]BX: 05/21/2018 Secondary NOT GIVENUNK [place] Insurance:SELF PAY [facility] Number: Effective Repository Date:2018-05-15 05/17/2018 PANCHO CHANEY LYNCHDOB: [place] [id number] N Insurance:ANTHEMPolic [id number] Community MARKET y Number: [place], [place] [id number] Repository 22012Jmw: (330) Date:2808-91-87OA [phone] () [address], [place] [address]UC: 05/17/2018 Secondary NOT GIVENUNK [place] Insurance:SELF PAY [facility] Number: Effective Repository Date:2018-05-17 11/29/2017 AFIA SWANN6 Primary RITU KENTB: [place] N MARKET Insurance:ANTHEMPolic [id number] [facility] Number: [facility] [address]Ddb: (636) [id number] Repository [phone] () Date:6131-08-16XN [facility] [id number], [place] [address]TT: 11/29/2017 Secondary NOT GIVENUNK [place] Insurance:SELF PAY [facility] Number: Effective Repository Date:2017-11-29
== END ==
PROVIDERS: Family Provider Family Medicine Geriatric Medicine; PCP Family Medicine Geriatric Medicine; Referring Provider Surgery; Visit Provider Surgery
DX: T85.43XA Leakage of breast prosthesis and implant, initial encounter (principal); N65.1 Disproportion of reconstructed breast; N64.4 Mastodynia; Z98.82 Breast implant status
CPT/HCPCS: 77062; 77066; G0279

== ENCOUNTER 2018-12-24 06:32 | Day surgery (SDC) | payer BC, SELFPAY ==
[2018-09-18 11:52] VITALS: BMI 29.2
[2018-12-18 11:18] VITALS: BMI 29.2
--- NOTE | 2018-12-23 23:59 | HP.PCM_ITS ---
History and Physical Date of Admission: 12/24/18 HISTORY OF PRESENT ILLNESS 58 year old woman presents with increased tightness in her right breast and the right breast being a little smaller than the left breast. She had saline implants placed back in 1999. She is not sure if the implants were placed on top of the muscle or underneath the muscle. We tried to contact the [facility] for an operative report. We were told that they don't keep records over 10 years old. Before the implants, her bra size was 36B and after the implants it was 38D. She denies any trauma. She denies any nipple discharge. She states there is some discomfort when the implants are bumped, more so on the right. She also has some associated neck and thoracic back pain that has been increasing over the last couple of years. She had a mammogram on 09/25/18. It showed scattered areas of fibroglandular density. There are no dominant masses or suspicious calcifications. There is evidence of retraction and rupture of the right breast implant. The left breast implant is unremarkable. She denies any fever. She presents at this time for preop evaluation. Her surgery for removal of the ruptured implants with capsulectomies is scheduled for 12/24/18. PAST MEDICAL HISTORY Anxiety and depression GERD (gastroesophageal reflux disease) Gallstones Kidney stones UTI (urinary tract infection) PAST SURGICAL HISTORY sections abdominoplasty breast augmentation cholecystectomy colonoscopy partial hysterectomy ALLERGIES bee venom protein (honey bee) Sulfa (Sulfonamide Antibiotics) MEDICATIONS Epi Pen omeprazole magnesium paroxetine FAMILY HISTORY Unknown - No problems noted. SOCIAL HISTORY Smoking Status: Never smoker alcohol intake: current substance use type: does not use REVIEW OF SYSTEMS General - Denies fever, fatigue, and weight loss. Eyes - Denies cataracts and glaucoma. ENT - Denies nasal congestion and sore throat. Endocrine - Denies excessive thirst and urination. Had saline breast implants placed in 1999. Skin - Denies suspicious lesions and skin cancer. Musculoskeletal - Denies joint pain, joint stiffness, weakness of muscles and joints, back pain, and arthritis. Neuro - Denies headaches. Cardiovascular - Denies chest pain, fatigue, and shortness of breath with exertion. Psych - Denies anxiety. Has depression. Respiratory - Denies chronic cough and shortness of breath. Gastrointestinal - Denies nausea, vomiting, diarrhea, and constipation. Hematologic - Denies abnormal bruising and bleeding. Genitourinary - Has hematuria and incontinence. Denies urinary frequency. PHYSICAL EXAMINATION General - Alert and Oriented. Bra size is 38 D. Before the implants it was 36 B. HEENT - PERRL. EOMI. Throat is clear. Neck - Supple and no bony tenderness. There is some pericervical soft tissue tenderness. No cervical adenopathy. Breasts - Soft and no masses palpable. Slight tenderness with palpation bilateral breasts, more so on the right. No axillary adenopathy. Some thickened scarring present from a capsular contracture more so on the right breast. The right breast is a little smaller than the left breast. Distance from the midclavicular line on the left to the nipple is 29 cm and from the nipple to the inframammary fold is 10 cm. Distance from the midclavicular line on the right to the nipple is 27 cm and from the nipple to the inframammary fold is 9 cm. The nipple areolar complex diameter is 7 cm bilaterally. Stage II ptosis present. Lungs - Clear to auscultation. Heart - Regular rate and rhythm. Abdomen - Soft and nondistended. Extremities - FROM. No axillary adenopathy. Radial pulses are palpable. Back - No bony tenderness. There is some perivertebral soft tissue tenderness in the thoracic area. Neuro - CN II-XII grossly intact. Psych - Normal mood and affect. ASSESSMENT 1. Bilateral breast pain. 2. Ruptured right breast implant. 3. Disproportion reconstructed breast. 4. Capsular contracture bilateral breast implants, more so on the right. 5. History of bilateral saline breast implants. PLAN Discussed various breast reconstruction options with the patient. Since she is not sure if the implants were placed on top of the muscle or underneath the muscle, we tried to get the old records. We called the [facility] in [place] and couldn't get the operative report as they stated no records are kept over 10 years old. With the degree of ptosis present, I suspect the implants were placed on top of the muscle. Her mammogram from 10/01 was reviewed. With the rupture of the implants, will remove them. The associated capsular contracture scar tissue will be removed with a capsulectomy to help minimize seroma formation postop and to help minimize chronic pain as well. She would like improved shape and contour of the breast. Because of her ptosis, a mastopexy would provide that improvement. She will consider that later on after her breasts have healed from the removal of the ruptured implants. If a mastopexy is done at the same time, there is the chance of nipple vascular issues especially if the implants were placed on top of the muscle. If we wait until healing has occurred before proceeding with a mastopexy, the chance of nipple vascular issues is still present but not as much. Also by waiting until healing has occurred will allow maximal skin contraction. The final shape and contour of the breast may be acceptable to the patient without having to proceed with another surgery. If she does decide to proceed with a mastopexy in the future, that surgery would be cosmetic and she would be financially responsible for that procedure. Financing information was given to the patient. She voices understanding. Patient was informed of the risks and complications of the procedure including alternatives to surgery. These were discussed with the patient personally. Patient voices understanding and wishes to proceed. Some of the risks and complications were included in a form from the [employer]. Surgery will be under general anesthesia with a surgical observation overnight stay in the hospital. She will have drains in for several days and wear an NAZIA wrap for chest wall compression to minimize seroma formation. Tissue that is removed will be sent to Pathology for analysis to rule out car cinoma. Her preop questions were answered personally and to her satisfaction. Consent was signed. Her surgery is scheduled for next 12/24/18.
[2018-12-24] VITALS (15 sets, daily range): BP systolic 102–130; BP diastolic 61–81; PULSE 69–97; RESP 14–18; TEMP 36–36.9; O2SAT 92–100; BMI 32.1; BMI 32.0
--- NOTE | 2018-12-24 | BR_PTH ---
PATIENT: PANCHO FIGUEROA LOC: [facility] U#:[id number] AGE/SX: 58/F ROOM: RE12/24/[address]: Dr. Jerry Dillard MD : 1960 BED: DIS: 12/25/2018 SPEC #: [id number] RECD: 12/24/18 14:32 STATUS: RAGINI ERROL #: [id number] MICAH: 12/24/18 00:[address]: Jerry Dillard DEPT: SURGICAL PATHOLOGY RECD BY: Melchor Aguiar ENTERED: 12/24/18 14:33 SP TYPE: MAMOPLASTY OTHR DR: No Primary Care Phys Tissues: A - Right breast, NOS B - Left breast, NOS C - FOREIGN BODY Procedures: Surgery Specimen Level I Surgery Specimen Level IV HEADER OPERATION: Removal painful ruptured saline breast implants PRE-OP DIAGNOSIS: Bilateral breast pain; ruptured right breast implant; disproportion reconstructed breast; capsular contracture right breast implant; history bilateral saline breast implants TISSUE SUBMITTED: A - Right breast tissue and capsule, B - Left breast tissue and capsule, C - Right ruptured and left explanted saline implants (gross only) MICROSCOPIC DIAGNOSIS A. Right breast and capsule: Fragments of fibroadipose tissue, fibroconnective tissue and skeletal muscle tissue with chronic inflammation, foreign body giant cell reaction and refractile non-polarizable material. B. Left breast and capsule: Fragments of fibroadipose tissue, fibroconnective tissue, skeletal muscle tissue with focal minimal chronic inflammation and a scant refractile non-polarizable material. C. Right ruptured and left explanted saline implants: Breast implant, clinically right, ruptured, with focal area of fibrinous material on the surface mixed with inflammatory cells. Second implant, intact, clinically left. ANNA:jennifer 12/25/18 COMMENT Case has been reviewed in consultation with Dr. Fuller who concurs with the above diagnosis. IDC:AM MICROSCOPIC DESCRIPTION Slides are reviewed. GROSS DESCRIPTION A - Received in fixative is one container labeled with the patient's name and designated right breast and capsule. The specimen consists of three variable sized pieces of soft tissue that in aggregate measure 8 x 7 x 1 cm. No obvious mass is identified. Management Developer sections are submitted in three cassettes. B - Received in fixative is one container labeled with the patient's name and designated left breast and capsule. The specimen consists of multiple irregular fragments of light tam soft tissue that in aggregate measure 9 x 7 x 2 cm. The specimen is totally submitted in one cassette. No mass lesion is identified. Management Developer sections are submitted in three cassettes. C - Received in fixative is one container labeled with the patient's name and designated right ruptured and left explanted saline implants (gross only). The specimen consists of two implants. One of the implants appears intact which is identified as left and measures 12.5 cm in diameter and up to 4.5 cm in depth. On the surface of the implant there is an inscription McGhan 300 cc. No obvious adherent tissue is noted. A few reddish minute fragments of tissue are noted on the surface of the implant. The second implant identified as right (ruptured) consists of collapsed implant measuring 11 cm in diameter. A few whitish fibrinous material is noted on the surface of the implant. The inscription on the implant says McGhan 300 cc. The specimen is for gross identification only. Management Developer portion of the adherent fibrinous material is submitted in one cassette. / ANNA:jennifer 12/24/18 TC: CPT: 29216 x2, 60139
[2018-12-24] MEDS: Cefazolin 2 GM in 0.9% Normal Saline 100 ML IV (07:51)
--- NOTE | 2018-12-24 10:13 | OP.PCM_ITS ---
Report of Operation Date of Procedure: 12/24/18 Pre-Operative Diagnosis: 1. Ruptured right breast implant. 2. Capsular contracture bilateral breast implants. 3. Bilateral breast pain. 4. Disproportion reconstructed breasts. 5. History of bilateral saline breast implants. Post-Operative Diagnosis: Same. Surgery/Procedure Performed:: Bilateral breast capsulectomies with removal of ruptured saline breast implants. Description of Surgical Findings:: 58 year old woman presents with increased tightness in her right breast and the right breast being a little smaller than the left breast. She had saline implants placed back in 1999. She is not sure if the implants were placed on top of the muscle or underneath the muscle. We tried to contact [facility] for an operative report. We were told that they don't keep records over 10 years old. Before the implants, her bra size was 36B and after the implants it was 38D. She denies any trauma. She denies any nipple discharge. She states there is some discomfort when the implants are bumped, more so on the right. She also has some associated neck and thoracic back pain that has been increasing over the last couple of years. She had a mammogram on 09/25/18. It showed scattered areas of fibroglandular density. There are no dominant masses or suspicious calcifications. There is evidence of retraction and rupture of the right breast implant. The left breast implant is unremarkable. She denies any fever. Patient was informed of the risks and complications of the procedure including alternatives to surgery. These were discussed with the patient personally. Patient voices understanding and wishes to proceed. Some of the risks and complications were included in a form from the [employer] [place] [employer]. I used Lexx absorbable hemostat, (2 vials, one in each breast). Reference Number - [id number]. Lot Number - [id number]. Expiration - September 11, 2023. prepared foods supervisor: Letty Varghese. Type of Anesthesia:: General Specimen's removed: 1. Right breast tissue and capsule to Pathology and Microbiology. 2. Left breast tissue and capsule to Pathology and Microbiology. 3. Saline implants to Pathology for gross. Drains: Aditya x 2 (one in each breast). Estimated Blood Loss (mL): 25 ml. Fluids Replaced: 1750 ml (IV Fluids 1500 ml, Urine Output 250 ml). Description of Procedure: Patient was taken to OR in supine position and was placed under general anesthesia. The breasts were prepped and draped in the usual fashion. SCD's were placed for DVT prophylaxis. Perioperative antibiotics were given intravenously. A mckay catheter was placed. Using xylocaine with epinephrine, the previous breast incisions were infiltrated. After waiting 5 minutes for the anesthetic to take effect, incisions were made in the previous horizontal breast incisions in the inframammary area. I first worked on the right breast. After dissecting through the subcutaneous tissue, the breast capsule was seen. A capsulotomy was performed and the implant was removed. It was ruptured and flat. Some exudate was present around the implant. This tissue was sent to Microbiology for culture. A positive culture will necessitate antibiotic therapy. A small amount of serous fluid was seen and irrigated out. A capsulectomy was then performed as I excised the capsule off the pectoralis muscle as well as the chest wall. The implant was placed under the muscle. This information will be helpful in the future if the patient decides to proceed with a mastopexy procedure. The capsular tissue was thickened and was sent to Pathology for analysis to rule out carcinoma. The wound was irrigated with saline. Hemostasis was obtained with electrocautery. A size 15 Aditya drain was placed into the breast pocket through a separate stab incision laterally. It was secured to the skin with 3-0 Nylon suture. To further minimize seroma formation, I sprayed Lexx absorbable hemostat into the breast pocket. The wound was then closed in a layered fashion with 3-0 Monocryl figure of eight interrupted sutures for the deep subcutaneous tissue. The deep dermis and subcutaneous tissue was approximated with 3-0 Monocryl interrupted sutures. The skin was approximated with 4-0 V lock unidirectional barbed running subcuticular suture. This was followed by Histoacryl skin tissue adhesive. I then went to the left breast. An incision was made in the previous horizontal breast incision in the inframammary area. After dissecting through the subcutaneous tissue, the breast capsule was seen. A capsulotomy was performed and the impla nt was removed. It was not clinically ruptured but appeared wrinkled indicative of some loss of saline from a slow leak. Some exudate was present around the implant. This tissue was sent to Microbiology for culture. A positive culture will necessitate antibiotic therapy. A small amount of serous fluid was seen and irrigated out. A capsulectomy was then performed as I excised the capsule off the pectoralis muscle as well as the chest wall. The implant was placed under the muscle. This information will be helpful in the future if the patient decides to proceed with a mastopexy procedure. The capsular tissue was thickened and was sent to Pathology for analysis to rule out carcinoma. The wound was irrigated with saline. Hemostasis was obtained with electrocautery. A size 15 Aditya drain was placed into the breast pocket through a separate stab incision laterally. It was secured to the skin with 3-0 Nylon suture. To further minimize seroma formation, I sprayed Lexx absorbable hemostat into the breast pocket. The wound was then closed in a layered fashion with 3-0 Monocryl figure of eight interrupted sutures for the deep subcutaneous tissue. The deep dermis and subcutaneous tissue was approximated with 3-0 Monocryl interrupted sutures. The skin was approximated with 4-0 V lock unidirectional barbed running subcuticular suture. This was followed by Histoacryl skin tissue adhesive. Her breasts were dressed with Kerlix gauze followed by an NAZIA wrap for compression to minimize seroma formation. Patient tolerated the procedure well and was sent to PACU in satisfactory condition. Patient will be sent upstairs for continued postop care. She will keep her head elevated during the initial postop period. She will have the drains removed in 7-10 days and be maintained on antibiotics until the drains are removed. She will also be on a lifting restriction. Grafts/Implants Used: None. - Complications None. - Admit VTE Documentation VTE Present on Admission: No VTE Mechan Device Prophylaxis: SCD's VTE Pharm Prophylaxis ordered?: Yes Code Visit Surgery Charges CPT - 39997 ICD-10 - T85.44xA, T85.43xA 76960-91 T85.44xA, T85.43xA
[2018-12-24] MEDS: Lactated Ringers 1,000 ML 60 ML IV (14:05)
[2018-12-24] MEDS: Cefazolin 1 GM/50 ML BAG IV ×2 (14:05→21:27)
[2018-12-24] MEDS: HYDROmorphone 1 MG/ML Syringe IV ×2 (17:16→21:42)
[2018-12-24] MEDS: 0.9% NaCl Peripheral Flush Adult/Peds IV ×2 (17:17→21:43)
[2018-12-25 04:16] VITALS: BP 124/69; PULSE 82; RESP 18; TEMP 37.1; O2SAT 97
[2018-12-25] MEDS: 0.9% NaCl Peripheral Flush Adult/Peds IV (04:22)
[2018-12-25] MEDS: HYDROmorphone 1 MG/ML Syringe IV (04:22)
[2018-12-25 05:57] LABS: Hematocrit 36.6 % (37-47); Hemoglobin 11.5 g/dl (12.0-15.0); Mean Corp Hgb Conc 31.4 g/gl (32-36); Mean Corpuscular Hgb 28.6 pg (27.0-32.0); Platelet Count 240 K/mm3 (150-450); RBC Distribution Width CV 13.9 % (11.6-14.6); RBC Distribution Width SD 45.3 fl (35.1-43.9); Red Blood Count 4.02 M/mm3 (4.2-5.4); White Blood Count 7.6 K/mm3 (4.4-11.0)
[2018-12-25 06:11] LABS: Scan Indicated on CBC? Y/N NO
[2018-12-25] MEDS: Cefazolin 1 GM/50 ML BAG IV (06:41)
[2018-12-25] MEDS: Enoxaparin 30 MG/0.3 ML Syringe SC (06:51)
[2018-12-25 06:59] LABS: Anion Gap 6 (5-15); BUN 12 mg/dL (7-18); BUN/Creat Ratio 14.3 RATIO (10-20); Calcium,Total 8.3 mg/dL (8.5-10.1); Chloride 104 mmol/L (98-107); Creatinine, Serum 0.84 mg/dL (0.55-1.02); EST Glomerular Filtration Rate 74 mL/min (>60); Est Glom Filt Rate - Afr Amer 89 mL/min (>60); Estimated Creatinine Clearance 81.06 ml/min; Glucose 121 mg/dL (74-106); Prealbumin 18.6 mg/dL (20.0-40.0); Sodium Level 141 mmol/L (136-145)
[2018-12-25 08:37] VITALS: BP 103/53; PULSE 72; RESP 14; TEMP 36.9; O2SAT 95
[2018-12-25 08:41] VITALS: O2SAT 89
[2018-12-25] MEDS: Pantoprazole Sodium 20 MG Tablet PO (10:57)
[2018-12-25] MEDS: Docusate Sodium 100 MG Capsule PO (10:57)
[2018-12-25] MEDS: Paroxetine 20 MG Tablet 40 MG PO (10:57)
[2018-12-25] MEDS: oxyCODONE 5 MG Tablet 10 MG PO (12:03)
[2018-12-25 13:45] VITALS: BP 115/65; PULSE 82; RESP 18; TEMP 37.4; O2SAT 92
--- NOTE | 2018-12-25 13:57 | PCM.PN.SRG ---
Subjective: Postop #1 Patient is resting comfortably. - Physical Exam General: Alert, Oriented x3 HEENT: PERRLA, EOMI Oral: Moist Mucosa Neck: Supple Abdomen: Soft, Non-Distended Skin: Incision - breast incisions are dry and intact. Breasts are soft and symmetrical. No clinical evidence of hematoma. Neurological: Cranial nerves II-XII grossly intact Psych/Mental Status: Normal Affect, Appropriate Vital Signs Temp Pulse Resp BP Pulse Ox 99.3 F H 82 18 115/65 92 12/25/18 13:45 12/25/18 13:45 12/25/18 13:45 12/25/18 13:45 12/25/18 13:45 Oxygen Flow Rate (L/min) 1 Oxygen Delivery Method Room Air Weight: 158 lb 15.253 oz Body Mass Index (BMI) 32.0 Intake and Output for Last 24 Hours 12/23/18 12/24/18 12/25/18 23:59 23:59 23:59 Intake Total 3134 / 3134 1212 / 1212 Output Total 1250 / 1250 1328 / 1328 Balance 1884 / 1884 -116 / -116 Drainage 250 ml yesterday, 128 ml today. Microbiology Past 72 Hours 12/24/18 Unknown Gram Stain - Final Biopsy - Breast Wound Culture - Preliminary No growth-Final to follow 12/24/18 Unknown Gram Stain - Final Biopsy - Breast Wound Culture - Preliminary No growth-Final to follow Laboratory Tests Past 24 Hrs 12/25/18 12/25/18 05:35 05:35 WBC 7.6 RBC 4.02 L Hgb 11.5 L Hct 36.6 L MCV 91.0 MCH 28.6 MCHC 31.4 L RDW 13.9 RDW Differential 45.3 H Plt Count 240 MPV 9.0 Sodium 141 Potassium 4.0 Chloride 104 Carbon Dioxide 31.0 Anion Gap 6 BUN 12 Creatinine 0.84 Estim Creat Clear Calc 81.06 Est GFR (MDRD) Af Amer 89 Est GFR (MDRD) Non-Af 74 BUN/Creatinine Ratio 14.3 Glucose 121 H Calcium 8.3 L Prealbumin 18.6 L Medical Necessity - Tobacco Use Smoking Status: Never smoker Tobacco Use: Non-smoker Assessment/Plan All Active Problems (This Medical Record has been edited. Action required.) H/O bilateral breast implants (Acute) 1. Ruptured right breast implant. 2. Capsular contracture bilateral breast implants. 3. Bilateral breast pain. 4. Disproportion reconstructed breasts. 5. History of bilateral saline breast implants. 6. s/p removal of ruptured saline breast implants with bilateral capsulectomies. Patient is resting comfortably. Breast incisions are dry and intact. No clinical evidence of hematoma. Operative cultures are negative thus far. She is tolerating po analgesia. Jones catheter was removed. She is voiding without difficulty. Prealbumin was 18.6. Encourage nutritional supplementation with protein to help the healing process. Discharge home today. Keep head elevated. Continue NAZIA wrap for compression. Continue lifting restriction. Wrote script for Cefadroxil until the drains are removed. Wrote scripts for Percocet for pain (50 tabs) and for Valium for spasm (30 tabs). Wrote scripts for Phenergan for nausea (30 tabs) with a refill and for Colace for constipation (60 tabs). Followup office one week.
--- NOTE | 2018-12-25 13:59 | PCM.DC ---
You will use the following diet at home:: No restrictions Discharge Activity: May not drive while taking narcotic pain medications., May Not Shower - until the drains are removed., - - keep head elevated. no heavy lifting. May shower in (days): 10 May resume sexual activity in: 10-14 days Weight Bearing Status: Weight bearing as tolerated Lifting Restrictions: 20 lbs. Keep extremity elevated above heart level: - - elevate head. Call your doctor if your incision/area has: Continuous Slow Oozing, Sudden Increased Bleeding, Increased Pain/ Swelling, Increased Redness, Foul Smelling Discharge, Swelling at the incision site Call your doctor if you observe: Fever of 101 or Higher, Coldness, Increased Pain, Shortness of breath, Chest pain, Calf discomfort, Uncontrolled pain Suture Line Care: - - dry dressings daily. Change Dressing in (Days):: 1 - dry dressings daily. Cleanse incision/area with: - - may get incisions wet in the shower after the drains are removed. Drain: Suction - kaitlynn drain x2 to bulb suction. empty and record output daily. Allergies/Adverse Reactions: Allergies bee venom protein (honey bee) Allergy (Verified 12/24/18 06:56) Anaphylaxis Sulfa (Sulfonamide Antibiotics) Allergy (Verified 12/24/18 06:56) Unknown Medications to take at Discharge Epi Pen (for allergic rxn) 0.3 mg IM X1 #1 syringe 06/15/18 omeprazole magnesium 20 mg tablet,delayed release 20 mg PO DAILY 09/18/18 paroxetine 40 mg tablet 40 mg PO DAILY 09/18/18 Cefadroxil [Duricef] 500 mg PO BID #28 cap 12/24/18 Diazepam [Valium] 5 mg PO 4X/DAY PRN PRN #30 tab 12/24/18 Docusate Sodium [Colace] 100 mg PO BID #60 cap 12/24/18 Oxycodone HCl/Acetaminophen [Percocet 5/325] 1 - 2 tab PO 4X/DAY PRN PRN 7 Days #50 tab 12/24/18 proMETHazine tablet [Phenergan tablet] 25 mg PO 4X/DAY PRN PRN #30 tab 12/24/18 Docusate Sodium [Colace] 100 mg PO BID capsule 12/25/18 proMETHazine tablet [Phenergan tablet] 25 mg PO Q4H PRN PRN tablet 12/25/18 The following prescriptions were given: Diazepam [Valium] 5 mg PO 4X/DAY PRN PRN #30 tab PRN Reason: Spasms Oxycodone HCl/Acetaminophen [Percocet 5/325] 1 - 2 tab PO 4X/DAY PRN PRN 7 Days #50 tab PRN Reason: Pain proMETHazine tablet [Phenergan tablet] 25 mg PO 4X/DAY PRN PRN #30 tab PRN Reason: Nausea Cefadroxil [Duricef] 500 mg PO BID #28 cap Docusate Sodium [Colace] 100 mg PO BID #60 cap Primary Care Physician: Care Physician,No Primary [Primary Care Provider] - Test Results: Test results from this visit will be discussed in further detail at your follow-up appointment, if applicable. Please Follow Up With: Jerry Dillard MD When: one week. call [phone] for appt. Proposed Discharge Date: 12/25/18
--- NOTE | 2018-12-25 14:03 | DCINST_ITS ---
You will use the following diet at home:: No restrictions Discharge Activity: May not drive while taking narcotic pain medications., May Not Shower - until the drains are removed., - - keep head elevated. no heavy lifting. May shower in (days): 10 May resume sexual activity in: 10-14 days Weight Bearing Status: Weight bearing as tolerated Lifting Restrictions: 20 lbs. Keep extremity elevated above heart level: - - elevate head. Call your doctor if your incision/area has: Continuous Slow Oozing, Sudden Increased Bleeding, Increased Pain/ Swelling, Increased Redness, Foul Smelling D ischarge, Swelling at the incision site Call your doctor if you observe: Fever of 101 or Higher, Coldness, Increased Pain, Shortness of breath, Chest pain, Calf discomfort, Uncontrolled pain Suture Line Care: - - dry dressings daily. Change Dressing in (Days):: 1 - dry dressings daily. Cleanse incision/area with: - - may get incisions wet in the shower after the drains are removed. Drain: Suction - kaitlynn drain x2 to bulb suction. empty and record output daily. Allergies/Adverse Reactions: Allergies bee venom protein (honey bee) Allergy (Verified 12/24/18 06:56) Anaphylaxis Sulfa (Sulfonamide Antibiotics) Allergy (Verified 12/24/18 06:56) Unknown Medications to take at Discharge Epi Pen (for allergic rxn) 0.3 mg IM X1 #1 syringe 06/15/18 omeprazole magnesium 20 mg tablet,delayed release 20 mg PO DAILY 09/18/18 paroxetine 40 mg tablet 40 mg PO DAILY 09/18/18 Cefadroxil [Duricef] 500 mg PO BID #28 cap 12/24/18 Diazepam [Valium] 5 mg PO 4X/DAY PRN PRN #30 tab 12/24/18 Docusate Sodium [Colace] 100 mg PO BID #60 cap 12/24/18 Oxycodone HCl/Acetaminophen [Percocet 5/325] 1 - 2 tab PO 4X/DAY PRN PRN 7 Days #50 tab 12/24/18 proMETHazine tablet [Phenergan tablet] 25 mg PO 4X/DAY PRN PRN #30 tab 12/24/18 Docusate Sodium [Colace] 100 mg PO BID capsule 12/25/18 proMETHazine tablet [Phenergan tablet] 25 mg PO Q4H PRN PRN tablet 12/25/18 The following prescriptions were given: Diazepam [Valium] 5 mg PO 4X/DAY PRN PRN #30 tab PRN Reason: Spasms Oxycodone HCl/Acetaminophen [Percocet 5/325] 1 - 2 tab PO 4X/DAY PRN PRN 7 Days #50 tab PRN Reason: Pain proMETHazine tablet [Phenergan tablet] 25 mg PO 4X/DAY PRN PRN #30 tab PRN Reason: Nausea Cefadroxil [Duricef] 500 mg PO BID #28 cap Docusate Sodium [Colace] 100 mg PO BID #60 cap Primary Care Physician: Care Physician,No Primary [Primary Care Provider] - Test Results: Test results from this visit will be discussed in further detail at your follow- up appointment, if applicable. Please Follow Up With: Jerry Dillard MD When: one week. call [phone] for appt. Proposed Discharge Date: 12/25/18
== END 2018-12-25 15:20 | disposition home or self-care (01) ==
LOC: SDC 06:33 → AC 06:35 → MS2 08:32 → AC 08:39 → MS2 11:32
PROVIDERS: Referring Provider Surgery; Visit Provider Surgery
PROC: (CPT 19371; principal; 2018-12-24 07:45)
DX: T85.44XA Capsular contracture of breast implant, initial encounter (principal); T85.43XA Leakage of breast prosthesis and implant, initial encounter; N65.1 Disproportion of reconstructed breast; N64.4 Mastodynia; G89.29 Other chronic pain; K21.9 Gastro-esophageal reflux disease without esophagitis; M79.7 Fibromyalgia; F32.9 Major depressive disorder, single episode, unspecified; F41.9 Anxiety disorder, unspecified; Z79.899 Other long term (current) drug therapy
CPT/HCPCS: 19371; 36415; 80048; 84134; 85027; 87070; 87075; 87102; 87205; 87206; 88300; 88305; J7120; A4216; J2405; Q9968

== ENCOUNTER 2019-06-03 19:44 | Emergency (ER) | payer BC, SELFPAY ==
[2019-01-16 14:15] VITALS: BMI 32.0
[2019-06-03 19:45] VITALS: BP 138/76; PULSE 72; RESP 18; TEMP 36.3; O2SAT 98; BMI 31.1
--- NOTE | 2019-06-03 19:52 | CT_ITS ---
STUDY: CT BRAIN WITHOUT CONTRAST REASON FOR EXAM: Female, 58 years old. Posttraumatic headache and blurred vision RADIATION DOSAGE (If Supplied By Facility): CTDIvol = ( 44.99 ) mGy, DLP = ( 779.24 ) mGycm TECHNIQUE: Transaxial CT imaging of the brain was performed without administration of intravenous contrast material. Individualized dose optimization techniques were used for this CT. COMPARISON: No relevant priors. FINDINGS: Normal soft tissue structures. Normal calvarium. Normal size ventricles and extra-axial spaces for the patient's age. Normal white matter tracts of the cerebral hemispheres. Normal basal ganglia and thalami. Normal brainstem. Normal cerebellum. Empty sella deformity likely of no significance. There is no intracranial hemorrhage. There are no findings of an acute ischemic infarction. There is mild mucosal thickening of the maxillary and ethmoid sinuses. CT/Brain/Head without Contrast IMPRESSION: Mild periventricular white matter ischemic changes. No evidence for acute intracranial bleed. MRI may be helpful for further evaluation if clinically warranted Electronically Signed: Edil Chu MD at 20:20 EDT , Service support ,
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
[2019-06-03] MEDS: Ondansetron ODT 4 MG Tablet PO (20:35)
== END 2019-06-03 20:52 | disposition home or self-care (01) ==
PROVIDERS: Emergency Provider Emergency Medicine; Family Provider Family Medicine; PCP Family Medicine
DX: S06.0X9A Concussion with loss of consciousness of unspecified duration, initial encounter (principal); W22.8XXA Striking against or struck by other objects, initial encounter; Y93.9 Activity, unspecified
CPT/HCPCS: 70450; 99283

== ENCOUNTER → 2020-07-09 | Outpatient (CLI) | payer BC, SELFPAY | END | disposition home or self-care (01) | PROVIDERS: PCP Family Medicine; Referring Provider Family Medicine; Visit Provider Family Medicine | DX: N39.0 Urinary tract infection, site not specified (principal) | CPT/HCPCS: 87077; 87086; 87088; 87186 ==

== ENCOUNTER → 2020-11-03 14:55 | Outpatient (CLI) | payer BC, SELFPAY ==
[2020-11-03 18:33] LABS: Vitamin D,25 Hydroxy 17.9 ng/mL
[2020-11-03 18:42] LABS: Anion Gap 6 (5-15); BUN 15 mg/dL (7-18); BUN/Creat Ratio 18.2 RATIO (10-20); Chloride 105 mmol/L (98-107); Cholesterol 220 mg/dL (200); Creatinine, Serum 0.83 mg/dL (0.55-1.02); EST Glomerular Filtration Rate 74 mL/min (>60); Est Glom Filt Rate - Afr Amer 90 mL/min (>60); Glucose 89 mg/dL (74-106); High Density Lipoprotein 64 mg/dL; Potassium 3.8 mmol/L (3.5-5.1); Sodium Level 137 mmol/L (136-145); Thyroid Stim Hormone (TSH) 1.97 uIU/mL (0.358-3.74); Triglycerides 121 mg/dL; Very Low Density Lipoprotein 24 mg/dL (5-40)
== END ==
PROVIDERS: PCP Family Medicine; Referring Provider Family Medicine; Visit Provider Family Medicine
DX: Z13.1 Encounter for screening for diabetes mellitus (principal); Z13.220 Encounter for screening for lipoid disorders; E55.9 Vitamin D deficiency, unspecified; R30.0 Dysuria
CPT/HCPCS: 36415; 80048; 80061; 82306; 84443; 87086; 87088

== ENCOUNTER → 2021-03-21 11:23 | Outpatient (CLI) | payer BC, SELFPAY ==
--- NOTE | 2021-03-21 11:25 | BI_ITS ---
MAMMOGRAPHY - BILATERAL SCREENING REASON FOR EXAM: Female, 60 years old. Routine annual screening examination. PERTINENT HISTORY: Non-contributory. History of prior implant removal. TECHNIQUE: Digital bilateral breast magdalena (3D mammographic acquisition) in the CC and MLO projections. 2-D mediolateral oblique (MLO) and craniocaudad (CC) views of both breasts were obtained. CAD: Full Field Digital Mammography with Computer Added Detection was performed. COMPARISON: Comparison is made with prior study dated 09/25/2018. FINDINGS: Breast Composition: There are scattered areas of fibroglandular density. There are no dominant masses or suspicious calcifications. The previously seen bilateral breast implants have been removed. Stable appearance of the bilateral axillary lymph nodes. No other significant abnormalities are identified. BI/SCRN MAMM (CAD)W/MAGDALENA BILAT IMPRESSION: Status post bilateral breast implant removal. Yearly follow-up mammogram recommended. (A) ASSESSMENT CATEGORY: BIRADS Category 2: Benign. A letter regarding these results will be sent to the patient by the facility within 30 days. Approximately 10% of breast cancers are not detected by mammography. A normal mammogram should not delay biopsy of a clinically suspicious abnormality. [id number] Electronically Signed: Roger Antonio MD at 12:14 EDT , Service support ,
== END ==
PROVIDERS: PCP Family Medicine; Referring Provider Family Medicine; Visit Provider Family Medicine
DX: Z12.31 Encounter for screening mammogram for malignant neoplasm of breast (principal)
CPT/HCPCS: 77063; 77067

== ENCOUNTER 2021-06-02 11:43 | Emergency (ER) | payer BC, SELFPAY ==
[2021-06-02 11:44] VITALS: BP 142/102; PULSE 100; RESP 17; TEMP 36.8; O2SAT 96; BMI 28.0
--- NOTE | 2021-06-02 11:47 | EX.ED.DYSGE1 ---
HPI History of Present Illness Chief Complaint: Allergic Reaction Informant: patient and spouse/S.O. 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 She developed difficulty breathing shortly after. The sting was on her right foot. She did not have her EpiPen on her. She did take 2 Benadryl prior to coming in. She denies any rash. She is having difficulty breathing. She denies any chest pain. No recent illness including fever/chills. No cough. She states that she has required EpiPen doses almost every summer due to insect bite/things. [facility] Medical History (Updated 06/02/21 @ 13:[address] Ariel Austin DO) Anxiety and depression Gallstones GERD (gastroesophageal reflux disease) Kidney stones UTI (urinary tract infection) Home Medications epinephrine 0.3 mg IM X1 #1 syringe 06/15/18 [Rx Last Taken Unknown] omeprazole magnesium 20 mg tablet,delayed release 20 mg PO DAILY 09/18/18 [History Last Taken Unknown] diazepam 5 mg PO 4X/DAY PRN PRN #30 tab 12/24/18 [Rx Last Taken Unknown] ondansetron 4 mg PO Q8H PRN PRN #10 tab 06/03/19 [Rx Last Taken Unknown] fluoxetine 40 mg PO DAILY 06/02/21 [History Last Taken Unknown] prednisone 40 mg PO BID 2 Days #8 tab 06/02/21 [Rx Last Taken Unknown] Allergy/AdvReac Type Severity Reaction Status Date / Time bee venom protein (honey bee) Allergy Anaphylaxis Verified 06/03/19 19:46 Sulfa (Sulfonamide Allergy Unknown Verified 06/03/19 19:46 Antibiotics) Family History (System 09/23/18 @ 10:16 by Lisa Danielson) Unknown No problems noted. Surgical History History of 3 sections History of abdominoplasty History of breast augmentation History of cholecystectomy History of colonoscopy History of endoscopy History of partial hysterectomy Social History Smoking Status: Never smoker alcohol intake: current substance use type: does not use additional social history: DOES NOT USE ASPIRIN DOES NOT USE IBUPROFEN ROS ROS ED Constitutional Constitutional ED: Denies chills or fever(s) ENT ENT ED: Denies epistaxis or rhinorrhea Cardiovascular Cardiovascular: Denies chest pain Respiratory/Chest Respiratory/Chest: Reports dyspnea; Denies cough Gastrointestinal Gastrointestinal: Denies abdominal pain, diarrhea, nausea or vomiting Musculoskeletal Musculoskeletal: Denies back pain or neck pain Integumentary Denies rash Neurologic Neurologic: Denies dizziness, headache(s) or weakness EXAM Physical Exam Const Vital Signs: 06/02/21 11:44 06/02/21 12:43 06/02/21 13:11 Temperature 98.2 F Temperature Source Oral Pulse Rate 100 67 78 Respiratory Rate 17 18 15 Blood Pressure 142/102 H 132/73 H 132/73 H Blood Pressure Mean 115 92 92 Pulse Ox 96 94 96 Oxygen Delivery Method Room Air Room Air Room Air Positive well nourished and well developed General Appearance ED: well developed and NAD HEENT Reports normocephalic and head/scalp atraumatic HEENT Narrative: Inspiratory stridor present. Eyes PERRL and EOMs intact bilaterally Neck supple Resp Resp Narrative: Mildly tachypneic, has stridor from upper airway. Otherwise has good air movement in the lower lung brennan. Cardio regular rate, regular rhythm and no murmurs GI normal to inspection, nondistended, normoactive bowel sounds and non-tender Palpation: soft; Negative for guarding or rebound tenderness present Extremity normal to inspection General Extremety ED: Negative for edema or tenderness General Extremity: Negative for edema Neuro Sensorium / Orientation: alert Motor Exam: strength 5/5 throughout Psych mental status grossly normal Skin Skin Narrative: There is a circular lesion on the right foot. It is about 1 cm in diameter. No foreign body or stinger left in place. MDM MDM MDM Narrative Medical decision making narrative: Patient presents to the emergency department for allergic reaction to bug bite/sting. Patient has stridor on exam but no other evidence of allergic reaction. She has received epi doses before in the past. This was being administered by nurses on my arrival to the room. She did receive Benadryl prior to coming in. Patient given a dose of prednisone as well. She is monitored in the emergency department for 3 hours and has significantly improved. She is currently asymptomatic except for feeling tired. She is given a prescription for prednisone. She does have an EpiPen at home she can use as needed. Return precautions are reviewed with her. She understands and is agreeable this plan. Discharged home in stable condition. All questions were answered. Discharge Plan Triage Chief Complaint: Allergic Reaction ED Provider: Ariel Austin Dx/Rx/DC Orders Clinical Impression: Allergic reaction to insect bite Instructions: ED General Allergic Reactions Prescriptions: New prednisone 20 mg tablet 40 mg PO BID 2 Days Qty: 8 RF: 0 No Action Prilosec OTC 20 mg tablet,delayed release (DR/EC) 20 mg PO DAILY RF: 0 epinephrine 0.3 MG syringe 0.3 mg IM X1 Qty: 1 RF: 0 diazepam 5 MG tablet 5 mg PO 4X/DAY PRN PRN (Reason: Spasms) Qty: 30 RF: 0 ondansetron 4 MG tablet 4 mg PO Q8H PRN PRN (Reason: Nausea) Qty: 10 RF: 0 fluoxetine 40 mg capsule 40 mg PO DAILY RF: 0 Primary Care Provider: Elbert Galan Referrals: Elbert Galan MD [Primary Care Provider] - 3-5 Days Disposition Disposition: Home, Self Care
[2021-06-02 12:43] VITALS: BP 132/73; PULSE 67; RESP 18; O2SAT 94
[2021-06-02] MEDS: predniSONE 20 MG Tablet 40 MG PO (13:10)
[2021-06-02 13:11] VITALS: BP 132/73; PULSE 78; RESP 15; O2SAT 96
[2021-06-02 14:49] VITALS: BP 122/70; PULSE 91; RESP 18; O2SAT 99
--- NOTE | 2021-06-02 14:49 | ED.RN ---
THIS NURSE REVIEWED D/C INSTRUCTIONS WITH PT AND . BOTH VERBALIZED UNDERSTANDING OF INSTRUCTIONS. IV D/C. IV CATHETER INTACT. PT TOLERATED WELL. PT DENIES FURTHER NEEDS OR QUESTIONS AT THIS TIME
== END 2021-06-02 14:50 | disposition home or self-care (01) ==
PROVIDERS: Emergency Provider Emergency Medicine; PCP Family Medicine
DX: T63.481A Toxic effect of venom of other arthropod, accidental (unintentional), initial encounter (principal); R06.1 Stridor; Y92.9 Unspecified place or not applicable; K21.9 Gastro-esophageal reflux disease without esophagitis; Z79.899 Other long term (current) drug therapy
CPT/HCPCS: 99284

== ENCOUNTER 2022-03-30 18:56 | Emergency (ER) | payer BC, SELFPAY ==
[2022-03-30 18:56] VITALS: BP 164/82; PULSE 72; RESP 18; TEMP 36.7; O2SAT 98; BMI 28.5
--- NOTE | 2022-03-30 19:04 | EDS_ITS ---
HPI History of Present Illness Chief Complaint: Allergic Reaction Informant: patient Narrative Narrative: 61-year-old female states that she stepped on a bee with her left foot. She states she is having difficulty breathing. She took 2 [id number] Benadryl and 1 EpiPen. She states that this is been a recurrent problem for her. [facility] Medical History Anxiety and depression Gallstones GERD (gastroesophageal reflux disease) Kidney stones UTI (urinary tract infection) Home Medications epinephrine 0.3 mg/0.3 mL injection, auto-injector 0.3 mg (0.3 mL) IM X1 ##1 06/15/18 [Rx Last Taken Unknown] omeprazole magnesium 20 mg tablet,delayed release (Prilosec OTC) 20 mg PO DAILY 09/18/18 [History Last Taken Unknown] diazepam 5 mg tablet 5 mg PO 4X/DAY PRN PRN Spasms #30 tabs 12/24/18 [Rx Last Taken Unknown] ondansetron 4 mg disintegrating tablet 4 mg PO Q8H PRN PRN Nausea #10 tabs 06/03/19 [Rx Last Taken Unknown] fluoxetine 40 mg capsule 40 mg PO DAILY 06/02/21 [History Last Taken Unknown] prednisone 20 mg tablet 40 mg PO BID 2 days #8 tabs 06/02/21 [Rx Last Taken Unknown] epinephrine 0.3 mg/0.3 mL injection, auto-injector (EpiPen) 0.3 mg (0.3 mL) IM X1 PRN anaphylaxis #1 ea 03/30/22 [Rx Last Taken Unknown] Allergy/AdvReac Type Severity Reaction Status Date / Time bee venom protein (honey bee) Allergy Anaphylaxis Verified 06/03/19 19:46 Sulfa (Sulfonamide Allergy Unknown Verified 06/03/19 19:46 Antibiotics) Family History Unknown No problems noted. Surgical History History of 3 sections History of abdominoplasty History of breast augmentation History of cholecystectomy History of colonoscopy History of endoscopy History of partial hysterectomy Social History Smoking Status: Never smoker alcohol intake: current substance use type: does not use additional social history: DOES NOT USE ASPIRIN DOES NOT USE IBUPROFEN ROS ROS ED Constitutional Constitutional ED: Denies chills or weight loss Eyes Eyes: Denies change in vision or diplopia ENT ENT ED: Denies ear pain, rhinorrhea or sore throat Cardiovascular Cardiovascular: Denies chest pain, orthopnea, palpitations or racing heartbeat Respiratory/Chest Respiratory/Chest: Reports dyspnea; Denies cough or orthopnea Gastrointestinal Gastrointestinal: Denies abdominal pain, diarrhea, nausea or vomiting Genitourinary Genitourinary ED: Denies dysuria, hematuria or urinary frequency Musculoskeletal Musculoskeletal: Denies arthralgias or myalgias Integumentary Denies abscess or rash Neurologic Neurologic: Denies headache(s) or weakness Psychiatric Psychiatric: Denies anxiety, depression, suicidal ideation or suicidal thoughts Endocrine Endocrinology: Denies polydipsia, polyphagia or polyuria Allergic/Immunologic Allergic/Immunologic ED: Denies mouth swelling, tongue swelling or urticaria EXAM Physical Exam Narrative Exam Narrative: Patient in no apparent distress Const Vital Signs: 03/30/22 18:56 Temperature 98.1 F Temperature Source Temporal Pulse Rate 72 Respiratory Rate 18 Blood Pressure 164/82 H Blood Pressure Mean 109 Pulse Ox 98 Positive well nourished and well developed General Appearance ED: well developed HEENT Reports normocephalic, head/scalp atraumatic and moist mucous membranes Eyes PERRL and EOMs intact bilaterally Neck no lymphadenopathy, supple and no JVD Resp normal respiratory effort and clear to auscultation bilaterally Cardio regular rate, regular rhythm and no murmurs GI normal to inspection, nondistended, normoactive bowel sounds and non-tender Palpation: soft Back/Spine no CVA tenderness and normal ROM Extremity normal to inspection General Extremety ED: Negative for edema General Extremity: Negative for edema Neuro oriented x3 and CN's II-XII intact bilaterally Sensorium / Orientation: alert Motor Exam: strength 5/5 throughout Psych mental status grossly normal Mood & Affect: Negative for depressed or tearful Skin no rashes or lesions noted and no wounds MDM MDM MDM Narrative Medical decision making narrative: Patient was watched on the monitor and received a dose of Solu-Medrol. She has no stridor or wheezing. She has no hives. She has stable vital signs. We will observe her and if she continues to do well we will discharge. Discharge Plan Triage Chief Complaint: Allergic Reaction ED Provider: Grayson Griggs Dx/Rx/DC Orders Clinical Impression: Accidental bee sting Instructions: ED General Allergic Reactions Prescriptions: New epinephrine [EpiPen] 0.3 mg/0.3 mL auto-injector 0.3 mg IM X1 PRN (Reason: anaphylaxis) Qty: 1 0RF No Action Prilosec OTC 20 mg tablet,delayed release (DR/EC) 20 mg PO DAILY epinephrine 0.3 MG syringe 0.3 mg IM X1 Qty: 1 0RF diazepam 5 MG tablet 5 mg PO 4X/DAY PRN PRN (Reason: Spasms) Qty: 30 0RF Rx Instructions: 30 tabs (thirty) ondansetron 4 MG tablet 4 mg PO Q8H PRN PRN (Reason: Nausea) Qty: 10 0RF fluoxetine 40 mg capsule 40 mg PO DAILY prednisone 20 mg tablet 40 mg PO BID 2 Days Qty: 8 0RF Primary Care Provider: Elbert Galan Referrals: Elbert Galan MD [Primary Care Provider] - As Needed Activity Restrictions/Additional Instructions: Benadryl 25 mg every 6 hours until symptoms are fully resolved.
[2022-03-30] MEDS: MethylPREDNISolone 125 MG/2 ML Vial IV (19:12)
[2022-03-30 21:39] VITALS: BP 145/82; PULSE 61; RESP 14; O2SAT 94
== END 2022-03-30 21:45 | disposition home or self-care (01) ==
LOC: ED 19:41
PROVIDERS: Emergency Provider Emergency Medicine; PCP Family Medicine; Visit Provider Emergency Medicine
DX: T63.441A Toxic effect of venom of bees, accidental (unintentional), initial encounter (principal); R06.02 Shortness of breath
CPT/HCPCS: 96374; 99284; J7030; A4216

== ENCOUNTER → 2023-11-20 | Outpatient (CLI) | payer MEDICARE, SELFPAY ==
[2023-11-20 12:34] LABS: Vitamin D,25 Hydroxy 17.1 ng/mL
[2023-11-20 13:46] LABS: Anion Gap 6 (5-15); BUN 15 mg/dL (7-18); BUN/Creat Ratio 17.5 RATIO (10-20); Calcium,Total 9.2 mg/dL (8.5-10.1); Chloride 107 mmol/L (98-107); Creatinine, Serum 0.86 mg/dL (0.55-1.02); EST Glomerular Filtration Rate 70 mL/min (>60); Est Glom Filt Rate - Afr Amer 85 mL/min (>60); Glucose 108 mg/dL (74-106); Potassium 4.2 mmol/L (3.5-5.1); Sodium Level 137 mmol/L (136-145); Thyroid Stim Hormone (TSH) 1.78 uIU/mL (0.358-3.74)
== END | disposition home or self-care (01) ==
LOC: MTLAB 10:23
PROVIDERS: PCP Family Medicine; Referring Provider Family Medicine; Visit Provider Family Medicine
DX: Z00.00 Encounter for general adult medical examination without abnormal findings (principal); Z13.220 Encounter for screening for lipoid disorders; E55.9 Vitamin D deficiency, unspecified; F41.9 Anxiety disorder, unspecified
CPT/HCPCS: 36415; 80048; 82306; 84443

== ENCOUNTER → 2025-06-24 | Outpatient (CLI) | payer MEDICARE, SELFPAY ==
[2025-06-24 17:51] LABS: Hematocrit 41.8 % (37-47); Hemoglobin 13.7 g/dL (12.0-15.0); Immature Granulocytes Count 0.040 X10^3/uL (0.0-0.0); Mean Corp Hgb Conc 32.8 g/dL (32-36); Mean Corpuscular Volume 86.7 fL (81-99); Mean Platelet Vol. 9.0 fl (6.2-12.0); NRBC Flagged by Analyzer 0 % (0-5); Platelet Count 327 K/mm3 (150-450); RBC Distribution Width CV 13.6 % (11.6-14.6); RBC Distribution Width SD 43.1 fl (35.1-43.9); Red Blood Count 4.82 M/mm3 (4.2-5.4); White Blood Count 10.0 K/mm3 (4.4-11.0)
[2025-06-24 18:26] LABS: AST(SGOT) 19 U/L (<=31); Alanine Aminotransfer ALT/SGPT 20 U/L (<=34); Albumin, Serum 4.2 g/dL (3.4-4.8); Alkaline Phosphatase 66 U/L (35-104); Anion Gap 13 (5-15); BUN 13 mg/dL (4-19); BUN/Creat Ratio 16.1 RATIO (10-20); Calcium,Total 9.7 mg/dL (7.6-11.0); Carbon Dioxide 24.8 mmol/L (21.0-32.0); Chloride 102 mmol/L (98-108); Globulin 2.7 g/dL (2.2-4.2); Glucose 94 mg/dL (70-99); Potassium 3.6 mmol/L (3.3-5.1)
[2025-06-24 18:29] LABS: CRP < 3.00 mg/L (0.0-3.0)
== END | disposition home or self-care (01) ==
LOC: MFPLAB 15:57
PROVIDERS: PCP Family Medicine; Visit Provider Family Medicine
DX: K57.32 Diverticulitis of large intestine without perforation or abscess without bleeding (principal)
CPT/HCPCS: 36415; 80053; 85025; 86140

== ENCOUNTER → 2025-07-07 | Outpatient (CLI) | payer MEDICARE, SELFPAY ==
--- NOTE | 2025-07-07 16:44 | CT_ITS ---
PROCEDURE: ABDOMEN/PELVIS WITH CONTRAST 07/07/2025 REASON FOR EXAM: ABDOMEN PAIN TECHNIQUE: Procedure Code: [id number] Modality: CT Procedure: ABDOMEN/PELVIS WITH CONTRAST Coronal and Sagittal reconstruction series were provided. CONTRAST: Isovue 370 VOLUME: 98 mL One or more dose reduction techniques were used (e.g., Automated exposure control, adjustment of the mA and/or kV according to patient size, use of iterative reconstruction technique. RADIATION DOSE SUMMARY: CTDlvol: 19+ 60 mGy DLP: 826 mGycm FINDINGS: The peripheral soft tissues unremarkable. Grade 1 anterolisthesis of L5 on S1. Mild atherosclerosis. Normal caliber abdominal aorta. No suspicious lymphadenopathy. The liver is unremarkable. The gallbladder is absent. The pancreas, spleen, adrenals are unremarkable. Symmetric enhancement of the bilateral kidneys. The urinary bladder is unremarkable. Surgically absent uterus. Dense colonic stool which may suggest constipation. No surrounding inflammatory changes. Normal caliber appendix. CT/Abdomen/Pelvis WITH Contrast IMPRESSION: No acute abnormalities of the abdomen or pelvis. Spondylolisthesis. Dense colonic stool suggestive of constipation. Reading Location: [id number]
--- OUTSIDE RECORDS SUMMARY | 2025-07-07 16:49 | XMS RPT_ITS | CCD ---
Author Organization [facility] Inform ion Partnership [facility] Care Team Providers Care Commercial Fisher Name Role Phone [employer] Unavailable Unavailable NO REFERRING Unavailable Unavailable RILEY LEE Unavailable Unavailable Alisia Shea Unavailable Unavailable Clem Avendano DO Unavailable Unavailable Clem Avendano Unavailable Unavailable Cory Greene Unavailable Unavailable Cory Greene MD Primary Care Provider [phone] Cory Greene MD Primary Care Provider Cory Greene MD Primary Care Provider [phone] [employer] Attending Unavailable Malcolm Galan Primary Care Unavailable Allergies Allergy Classification Reported Allergen(s) Allergy Type Date of Onset Reaction(s) Facility Sulfonamides (antibiotic) (1 source) Sulfonamides (Antibiotic) Drug Allergy [facility] Work Phone: (1 source) Sulfonamides (Antibiotic); Translations: [SULFA] Propensity to adverse reactions (disorder) [facility] Repository (1 source) ciprofloxacin Drug Allergy 12-14-19 17 HIVES [facility] Repository (3 sources) Sulfonamides (Antibiotic) Drug allergy (disorder) 12-14-19 17 HIVES, Unknown [facility] Repository (4 sources) bee venom protein (honey bee) Allergy to substance 10-26-19 10 Anaphylactic Shock [facility] Work Phone: (4 sources) Sulfonamides (Antibiotic) Propensity to adverse reactions to drug 10-26-19 10 Rash [facility] (2 sources) Honey bee venom Propensity to adverse reactions to substance 10-26-19 10 [facility] Work Phone: (1 source) Sulfonamides (Antibiotic) Allergy to substance 06-03-[address] [facility] (1 source) bee venom protein (honey bee) Drug allergy (disorder) 06-03-[address] [facility] Repository Medications Current Medications Medication Drug Class(es) Dates Sig (Normalized) Sig (Original) ergocalciferol 1.25 mg oral capsule (1 source) Provitamin D2 Compound Start: 10-04-2012 take 1 capsule by mouth every week vitamin D2 (ERGOCALCIFEROL) 26955 UNITS capsule Take 1 Cap by mouth once weekly. 8 Cap 0 10/04/2012 Active FLUoxetine 40 mg oral capsule (11 sources) Serotonin Reuptake Inhibitor Start: 10-25-2015 take 1 capsule by mouth once daily fluoxetine (PROZAC) 40 MG capsule Indications: Depression, unspecified depression type Take 1 Capsule by mouth daily. 90 Capsule 3 03/15/2017 Active fluticasone propionate 0.05 mg/actuat metered dose nasal spray (4 sources) Corticosteroid Start: 11-29-2015 take 1 spray(s) nasal route once daily fluticasone (FLONASE) 50 MCG/ACT nasal inhaler Tolleson 1 Tolleson into each nostril daily. 3 Bottle 1 11/29/2015 Active 24 hr metFORMIN hydrochloride 500 mg extended release oral tablet (4 sources) Biguanide Start: 11-29-2015 take 1 tablet by mouth once daily metformin (GLUCOPHAGE-XR) 500 MG XR tablet Take 1 Tablet by mouth daily. 90 Tablet 1 11/29/2015 Active omeprazole 20 mg delayed release oral tablet (7 sources) Proton Pump Inhibitor Start: 09-18-2018 take 1 tablet by mouth once daily Omeprazole Magnesium (Prilosec Otc) 20 mg tablet,delayed release (DR/EC) Active 20 MG PO DAILY September 18, 2018 12:00am take 20.6 mg by mouth once daily Omeprazole Magnesium (PRILOSEC OTC ORAL) Take 20.6 mg by mouth. One time a day Active take 20.6 mg by mouth once daily Omeprazole Magnesium (PRILOSEC OTC ORAL) Take 20.6 mg by mouth. One time a day 0 Active ondansetron 4 mg disintegrating oral tablet (2 sources) Serotonin-3 Receptor Antagonist Start: 06-03-2019 take 4 mg by mouth every eight hours as needed Ondansetron Active 4 MG PO EVERY 8 HOURS NEEDED June 02, 2019 11:00pm Completed/Discontinued Medications Medication Drug Class(es) Dates Sig (Normalized) Sig (Original) acetaminophen 325 mg / oxyCODONE hydrochloride 5 mg oral tablet (2 sources) Opioid Agonist Start: 12-24-2018 End: 12-31-2018 take 1 tablet by mouth four times daily as needed Oxycodone-Acetamin ophen Discontinued 1 - 2 TABLET PO 4 TIMES DAILY NEEDED 50 7 December 24, 2018 9:30am December 30, 2018 11:08pm 50 tabs (fifty) cefadroxil 500 mg oral capsule (2 sources) Cephalosporin Antibacterial Start: 12-24-2018 End: 01-16-2019 take 500 mg by mouth twice daily Cefadroxil Discontinued 500 MG PO TWICE A DAY December 23, 2018 11:00pm January 16, 2019 1:15pm ciprofloxacin 500 mg oral tablet (2 sources) Quinolone Antimicrobial Start: 11-28-2016 take 1 tablet by mouth twice daily Ciprofloxacin HCl - 500 MG Oral Tablet TAKE 1 TABLET TWICE DAILY. Quantity: 28 Refills: 0 Clem Avendano DO Start : 28-Nov-2016 Active Start: 10-30-2016 take 1 tablet by adebayo th once daily Ciprofloxacin HCl - 500 MG Oral Tablet TAKE 1 TABLET EVERY 12 HOURS DAILY. Quantity: 14 Refills: 0 Clem Avendano DO Start : 30-Oct-2016 Active docusate sodium 100 mg oral capsule (2 sources) Start: 12-24-2018 End: 01-16-2019 take 100 mg by mouth twice daily Docusate Sodium Discontinued 100 MG PO TWICE A DAY December 23, 2018 11:00pm January 16, 2019 1:14pm hydrocortisone 25 mg/ml topical cream (1 source) Corticosteroid Start: 09-11-2016 Hydrocortisone 2.5 % CREA Apply 2-3 times daily as needed. Quantity: 1 Refills: 5 Clem Avendano DO Start : 11-Sep-2016 Active 30 GM Tube Problems Active Problems Problem Classification Problem Date Documented Date Episodic/Chronic Allergic reactions (3 sources) Allergy status to sulfonamides status; Translations: [Other insect allergy status] Onset: 08-26-2016 06-02-2021 Episodic Calculus of urinary tract (1 source) History of calculus of kidney; Translations: [Personal history of urinary calculi] Episodic Complication of device; implant or graft (4 sources) Rupture of breast implant; Translations: [Leakage of breast prosthesis and implant, initial encounter] 12-25-2018 Episodic Esophageal disorders (1 source) Gastro-esophageal reflux disease without esophagitis; Translations: [GERD WITHOUT ESOPHAGITIS] Onset: 08-26-2016 Chronic Intracranial injury (2 sources) Concussion with loss of consciousness; Translations: [Concussion with loss of consciousness of unspecified duration, initial encounter] 06-04-2019 Episodic Nonmalignant breast conditions (4 sources) Pain of breast; Translations: [Mastodynia] 12-25-2018 Episodic Nutritional deficiencies (4 sources) Vitamin D deficiency; Translations: [Vitamin D deficiency, unspecified] Onset: 02-12-2012 02-12-2012 Chronic Osteoarthritis (4 sources) Degenerative joint disease of thumb; Translations: [Primary osteoarthritis, unspecified hand] Onset: 10-26-2009 10-26-2009 Chronic Other diseases of kidney and ureters (1 source) Cyst of kidney; Translations: [Cystic kidney disease, unspecified] Episodic Other inflammatory condition of skin (1 source) Pruritus ani; Translations: [Pruritus ani] Episodic Poisoning by nonmedicinal substances (2 sources) Bee sting; Translations: [Toxic effect of venom of bees, accidental (unintentional), initial encounter] 04-07-2022 Episodic Residual codes; unclassified (2 sources) History of bilateral breast implants; Translations: [Breast implant status] 12-25-2018 Chronic Urinary tract infections (2 sources) Cystitis, unspecified without hematuria; Translations: [Acute lower urinary tract infection] Onset: 08-26-2016 Episodic Past or Other Problems Problem Classification Problem Date Documented Da te Episodic/Chronic Abdominal pain (1 source) Lower abdominal pain, unspecified; Translations: [LOWER ABDOMINAL PAIN UNS] Onset: 08-26-2016 Episodic Diabetes mellitus without complication (4 sources) Prediabetes; Translations: [Prediabetes] Onset: 09-05-2016 09-05-2016 Episodic Fever of unknown origin (1 source) Fever, unspecified; Translations: [FEVER UNSPECIFIED] Onset: 08-26-2016 Episodic Genitourinary symptoms and ill-defined conditions (4 sources) Dysuria; Translations: [Frequency of micturition] Onset: 08-26-2016 Episodic Other skin disorders (4 sources) Cyst of finger; Translations: [Cyst of finger] Onset: 12-26-2012 12-26-2012 Episodic NEGATED: Highlighted row has not occurred!Residual codes; unclassified (1 source) Disease Episodic Results Test Name Value Interpretation Reference Range Facility CBC W/Diff, Automatedon 06-15-2024 Absolute Lymph 2.55 X10 3/uL Normal 0.83-4.[address] [facility] Comment on above: Order Comment: Order Date: 06/24/25 Order Info: 018- - CBCD Performed By: #### L 100.0100 #### [facility] [address] [place], [address] Absolute Neut 6.2 X10 3/uL Normal 2.0-7.[address] [facility] Comment on above: Order Comment: Order Date: 06/24/25 Order Info: 183- - CBCD Performed By: #### L 100.0100 #### [facility] [address] [place], [address] Basophils/100 WBC (Bld) 0.7 % Normal 0-[address] [facility] Comment on above: Order Comment: Order Date: 06/24/25 Order Info: 183- - CBCD Performed By: #### L 100.0100 #### [facility] [address] [place], [address] Eosinophils/100 WBC (Bld) 3.7 % Normal 0-[address] [facility] Comment on above: Order Comment: Order Date: 06/24/25 Order Info: 183- - CBCD Performed By: #### L 100.0100 #### [facility] [address] [place], [address] Erythrocyte distribution width (RBC) [Ratio] 13.6 % Normal 11.6-14.[address] [facility] Comment on above: Order Comment: Order Date: 06/24/25 Order Info: 183- - CBCD Performed By: #### L 100.0100 #### [facility] [address] [place], [address] Hematocrit (Bld) [Volume fraction] 41.8 % Normal 37-[address] [facility] Comment on above: Order Comment: Order Date: 06/24/25 Order Info: 0184- - CBCD Performed By: #### L 100.0100 #### [facility] [address] [place], [address] Hemoglobin (Bld) [Mass/Vol] 13.7 g/dL Normal 12.0-15.[address] [facility] Comment on above: Order Comment: Order Date: 06/24/25 Order Info: 018- - CBCD Performed By: #### L 100.0100 #### [facility] [address] [place], [address] IG% 0.400 Normal 0.0-0.[address] [facility] Comment on above: Order Comment: Order Date: 06/24/25 Order Info: 018- - CBCD Result Comment: IG% - Immature Granulocytes (promyelocytes, myelocytes and metamyelocytes) > 1% indicates that a LEFT SHIFT is Present. Performed By: #### L 100.0100 #### [facility] [address] [place], [address] Lymphocytes/100 WBC (Bld) 25.5 % Normal 19-[address] [facility] Comment on above: Order Comment: Order Date: 06/24/25 Order Info: 0184- - CBCD Performed By: #### L 100.0100 #### [facility] [address] [place], [address] MCH (RBC) [Entitic mass] 28.4 pg Normal 27.0-32.[address] [facility] Comment on above: Order Comment: Order Date: 06/24/25 Order Info: 0184- - CBCD Performed By: #### L 100.0100 #### [facility] [address] [place], [address] MCHC (RBC) [Mass/Vol] 32.8 g/dL Normal 32-36 [facility] Comment on above: Order Comment: Order Date: 06/24/25 Order Info: 0184-1 - CBCD Performed By: #### L 100.0100 #### [facility] [address] [place], [address] MCV (RBC) [Entitic vol] 86.7 fL Normal 81-[address] [facility] Comment on above: Order Comment: Order Date: 06/24/25 Order Info: 0184-1 - CBCD Performed By: #### L 100.0100 #### [facility] [address] [place], [address] Monocytes/100 WBC (Bld) 8.0 % Normal 0-[address] [facility] Comment on above: Order Comment: Order Date: 06/24/25 Order Info: 0184-1 - CBCD Performed By: #### L 100.0100 #### [facility] [address] [place], [address] Neutrophils/100 WBC (Bld) 61.7 % Normal 47-[address] [facility] Comment on above: Order Comment: Order Date: 06/24/25 Order Info: 0184-1 - CBCD Performed By: #### L 100.0100 #### [facility] [address] [place], [address] Nucleated RBC (Bld) [#/Vol] 0 10*3/uL Normal 0-[address] [facility] Comment on above: Order Comment: Order Date: 06/24/25 Order Info: 0184-1 - CBCD Performed By: #### L 100.0100 #### [facility] [address] [place], [address] Platelet mean volume (Bld) [Entitic vol] 9.0 fL Normal 6.2-12.[address] [facility] Comment on above: Order Comment: Order Date: 06/24/25 Order Info: 0184-1 - CBCD Performed By: #### L 100.0100 #### [facility] [address] [place], [address] Platelets (Bld) [#/Vol] 327 10*3/uL Normal 150-[address] [facility] Comment on above: Order Comment: Order Date: 06/24/25 Order Info: 0184-1 - CBCD Performed By: #### L 100.0100 #### [facility] [address] [place], [address] RBC (Bld) [#/Vol] 4.82 10*6/uL Normal 4.2-5.4 [facility] Comment on above: Order Comment: Order Date: 06/24/25 Order Info: 018- - CBCD Performed By: #### L 100.0100 #### [facility] [address] [place], [address] RDW SD 43.1 fl Normal 35.1-43.[address] [facility] Comment on above: Order Comment: Order Date: 06/24/25 Order Info: 0184- - CBCD Performed By: #### L 100.0100 #### [facility] [address] [place], [address] WBC (Bld) [#/Vol] 10.0 10*3/uL Normal 4.4-11.0 [facility] Comment on above: Order Comment: Order Date: 06/24/25 Order Info: 0184- - CBCD Performed By: #### L 100.0100 #### [facility] [address] [place], [address] CRPon 06-24-2025 C-REACTIVE PROT < 3.00 Normal 0.0-3.[address] [facility] Comment on above: Order Comment: Order Date: 06/24/25 Order Info: 0786-1 - CMP Order Info: [id number] - CRP Performed By: #### L 500.4050, L501.6710 #### [facility] [address] [place], [address] Comprehensive Metabolic Prof ilon 06-24-2025 Albumin [Mass/Vol] 4.2 g/dL Normal 3.4-4.8 [facility] Comment on above: Order Comment: Order Date: 06/24/25 Order Info: 0786-1 - CMP Order Info: [id number] - CRP Performed By: #### L 500.4050, L501.6710 #### [facility] [address] [place], [address] Albumin/Globulin [Mass ratio] 1.6 {ratio} Normal 0.9-2.[address] [facility] Comment on above: Order Comment: Order Date: 06/24/25 Order Info: 0786-1 - CMP Order Info: [id number] - CRP Performed By: #### L 500.4050, L501.6710 #### [facility] [address] [place], [address] ALK PHOS 66 U/L Normal 35-[address] [facility] Comment on above: Order Comment: Order Date: 06/24/25 Order Info: 0786-1 - CMP Order Info: [id number] - CRP Performed By: #### L 500.4050, L501.6710 #### [facility] [address] [place], [address] ALT [Catalytic activity/Vol] 20 U/L Normal <=[address] [facility] Comment on above: Order Comment: Order Date: 06/24/25 Order Info: 0786-1 - CMP Order Info: [id number] - CRP Performed By: #### L 500.4050, L501.6710 #### [facility] [address] [place], [address] AST [Catalytic activity/Vol] 19 U/L Normal <=[address] [facility] Comment on above: Order Comment: Order Date: 06/24/25 Order Info: 0786-1 - CMP Order Info: [id number] - CRP Performed By: #### L 500.4050, L501.6710 #### [facility] [address] [place], [address] Bilirubin [Mass/Vol] 1.00 mg/dL Normal 0.00-1.30 [facility] Comment on above: Order Comment: Order Date: 06/24/25 Order Info: 0786-1 - CMP Order Info: [id number] - CRP Performed By: #### L 500.4050, L501.6710 #### [facility] [address] [place], [address] BUN/CRE 16.1 RATIO Normal 10-[address] [facility] Comment on above: Order Comment: Order Date: 06/24/25 Order Info: 0786-1 - CMP Order Info: [id number] - CRP Performed By: #### L 500.4050, [id number] #### [facility] [address] [place], [address] Calcium [Mass/Vol] 9.7 mg/dL Normal 7.6-11.0 [facility] Comment on above: Order Comment: Order Date: 06/24/25 Order Info: 0786-1 - CMP Order Info: [id number] - CRP Performed By: #### L 500.4050, [id number] #### [facility] [address] [place], [address] Chloride [Moles/Vol] 102 mmol/L Normal 98-108 [facility] Comment on above: Order Comment: Order Date: 06/24/25 Order Info: 0786-1 - CMP Order Info: [id number] - CRP Performed By: #### L 500.4050, [id number] #### [facility] [address] [place], [address] CO2 [Moles/Vol] 24.8 mmol/L Normal 21.0-32.[address] [facility] Comment on above: Order Comment: Order Date: 06/24/25 Order Info: 0786-1 - CMP Order Info: [id number] - CRP Performed By: #### L 500.4050, [id number] #### [facility] [address] [place], [address] Creatinine [Mass/Vol] 0.80 mg/dL Normal 0.70-1.20 [facility] Comment on above: Order Comment: Order Date: 06/24/25 Order Info: 86-1 - CMP Order Info: [id number] - CRP Performed By: #### L 500.4050, [id number] #### [facility] [address] [place], [address] GAP 13 Normal 5-[address] [facility] Comment on above: Order Comment: Order Date: 06/24/25 Order Info: 07-1 - CMP Order Info: [id number] - CRP Performed By: #### L 500.4050, [id number] #### [facility] [address] [place], [address] GFR/1.73 sq M.predicted among non-blacks MDRD (S/P/Bld) [Vol rate/Area] 81 mL/min/{1.73_m2} Normal >[address] [facility] Comment on above: Order Comment: Order Date: 06/24/25 Order Info: 0786-1 - CMP Order Info: [id number] - CRP Result Comment: mL/m in/1.73m2 CKD-EPI Creatinine Equation (2020) Performed By: #### L 500.4050, [id number] #### [facility] [address] [place], [address] Globulin (S) [Mass/Vol] 2.7 g/dL Normal 2.2-4.[address] [facility] Comment on above: Order Comment: Order Date: 06/24/25 Order Info: 0786-1 - CMP Order Info: [id number] - CRP Performed By: #### L 500.4050, [id number] #### [facility] [address] [place], [address] Glucose [Mass/Vol] 94 mg/dL Normal 70-99 [facility] Comment on above: Order Comment: Order Date: 06/24/25 Order Info: 0786-1 - CMP Order Info: [id number] - CRP Performed By: #### L 500.4050, [id number] #### [facility] [address] [place], [address] Potassium [Moles/Vol] 3.6 mmol/L Normal 3.3-5.1 [facility] Comment on above: Order Comment: Order Date: 06/24/25 Order Info: 0786-1 - CMP Order Info: [id number] - CRP Performed By: #### L 500.4050, [id number] #### [facility] [address] [place], [address] Sodium [Moles/Vol] 139 mmol/L Normal 133-145 [facility] Comment on above: Order Comment: Order Date: 06/24/25 Order Info: 0786-1 - CMP Order Info: [id number] - CRP Performed By: #### L 500.4050, [id number] #### [facility] [address] [place], [address] T PROT 6.9 g/dL Normal 5.9-8.[address] [facility] Comment on above: Order Comment: Order Date: 06/24/25 Order Info: 0786-1 - CMP Order Info: [id number] - CRP Performed By: #### L 500.4050, [id number] #### [facility] [address] [place], [address] Urea nitrogen [Mass/Vol] 13 mg/dL Normal 4-[address] [facility] Comment on above: Order Comment: Order Date: 06/24/25 Order Info: 0786-1 - CMP Order Info: [id number] - CRP Performed By: #### L 500.4050, [id number] #### [facility] [place], [address] Basophil percentageOrdered B y: Elbert Galan on 11-20-2023 Chloride [Moles/Vol] 107 mmol/L 98-107 [facility] Glucose [Mass/Vol] 108 mg/dL 74-106 [facility] Comment on above: Fasting Glucose resu lt from 100 to 125 mg/dL suggests IMPAIRED HOMEOSTASIS per A.D.A. criteria. Potassium [Moles/Vol] 4.2 mmol/L 3.5-5.1 [facility] Sodium [Moles/Vol] 137 mmol/L 136-145 [facility] - Chemistry and C hemistry - challengeOrdered By: Elbert Galan on 11-20-2023 CO2 [Moles/Vol] 24.0 mmol/L 21.0-32.[address] [facility] Urea nitrogen/Creatinine [Mass ratio] 17.5 mg/mg 10-[address] [facility] No Panel InformationOrdered By: Elbert Galan on 11-20-2023 Estimated GFR (MDRD) Amer 85 mL/min >[address] [facility] Comment on above: GFR Calc Estimated GFR (MDRD) Non-Af Amer 70 mL/min >[address] [facility] Comment on above: Non- GFR Calc Vitamin D 25-Hydroxy 17.1 ng/mL [facility] Comment on above: Vitamin D 25(OH) Sta tus Range Deficiency <20 ng/mL (50nmol/L) Insufficiency 20 - 30 ng/mL (50 - 75 nmol/L) Sufficiency 30 - 100 ng/mL (75 - 250 nmol/L) Toxicity >100 ng/mL (>250 nmol/L) Serum or plasma calcium mikki urement (mass/volume)Ordered By: Elbert Galan on 11-20-2023 Calcium [Mass/Vol] 9.2 mg/dL 8.5-10.1 [facility] Serum or plasma creatinine m easurement (mass/volume)Ordered By: Elbert Galan on 11-20-2023 Creatinine [Mass/Vol] 0.86 mg/dL 0.55-1.02 [facility] Comment on above: The validity of the calculated GFR & GFRAA in patients over 70 years has not been determined. Clinical correlation is essential. Serum or plasma thyroid stim ulating hormone (TSH) measurement (units/volume)Ordered By: Elbert Galan on 11-20-2023 TSH Qn 1.78 uIU/mL 0.358-3.[address] [facility] Serum or plasma urea nitroge n measurement (mass/volume)Ordered By: Elbert Galan on 11-20-2023 Urea nitrogen [Mass/Vol] 15 mg/dL 05-[address] [facility] Thin prep Papanicolaou smear with manual screeningOrdered By: Elbert Galan on 11-20-2023 Thin prep Papanicolaou smear with manual screening 6 02-[address] [facility] ALLIED HEALTHon 06-10-2019 ALLIED HEALTH HNO ID: [id number] Author: NICANOR Oconnor (Ct) Service: ? Author Type: Clinical Tobacco Drier Operator Type: Allied Health Filed: 06/10/2019 1:22 PM Note Text: Radiology Service Progress Note PATIENT NAME: Kamilla Figueroa DATE OF SERVICE: June 10, 2019 TIME: 1:22 PM PATIENT IDENTITY VERIFICATION COMPLETED USING TWO (2) METHODS: Name and Date of confirmed by patient verbally. PATIENT GENDER DATA: Female. status: : No status: NO. PATIENT RELEVANT IMPLANT DATA REVIEWED: Yes RADIOLOGY DEPARTMENT: CT; Exam(s) Completed: Brain PERIPHERAL IV DATA: Not applicable SIGNED BY: NICANOR Oconnor June 10, 2019 1:22 PM Normal [facility] Basic Metabolic Panlon 06-10 Anion gap [Moles/Vol] 12 mmol/L Normal 9-18 [facility] Comment on above: Performed By: #### C BCDIF BMP #### [facility] [address] [phone] Calcium [Mass/Vol] 9.6 mg/dL Normal 8.5-10.2 [facility] Comment on above: Performed By: #### C BCDIF, BMP #### [facility] [address] [phone] Chloride [Moles/Vol] 103 mmol/L Normal 97-105 [facility] Comment on above: Performed By: #### C BCDIF, BMP #### [facility] [address] [facility] [phone] CO2 [Moles/Vol] 26 mmol/L Normal 22-30 [facility] Comment on above: Performed By: #### C FADI, DIXON #### [facility] [address] [facility] [phone] Creatinine [Mass/Vol] 0.70 mg/dL Normal 0.58-0.96 [facility] Comment on above: Performed By: #### C FADI, DIXON #### [facility] [address] [place] [phone] eGFR- Amer. >60 Normal [facility] Comment on above: Performed By: #### C FADI, DIXON #### [facility] [address] [phone] GFR/1.73 sq M predicted among non-blacks MDRD (S/P/Bld) [Vol rate/Area] mL/min/{1.73_m2} Normal [facility] Comment on above: Result Comment: eGFR (Estimated GFR) Units of measure: mL/min/1.73 meters squared eGFR is derived from the reexpressed MDRD Study equation using the following parameters: serum creatinine, age, gender and race. The creatinine assay has been calibrated to be traceable to IDMS. An eGFR <60 mL/min/1.73m2 for >3 months is consistent with chronic kidney disease. Refer to KDOQI guidelines for clinical interpretation. In patients with unstable renal function, e.g. those with acute kidney injury, the eGFR may not accurately reflect actual GFR. Performed By: #### C BCDIF, DIXON #### [facility] [address] [facility] [phone] Glucose [Mass/Vol] 92 mg/dL Normal 74-99 [facility] Comment on above: Result Comment: The [place] [employer] (ADA) provides guidance for cutoff values for fasting glucose and random glucose. The ADA defines fasting as no caloric intake for at least 8 hours. Fasting plasma glucose results between 100 to 125 mg/dL indicate increased risk for diabetes (prediabetes). Fasting plasma glucose results greater than or equal to 126 mg/dL meet the criteria for diagnosis of diabetes. In the absence of unequivocal hyperglycemia, results should be confirmed by repeat testing. In a patient with classic symptoms of hyperglycemia or hyperglycemic crisis, random plasma glucose results greater than or equal to 200 mg/dL meet the criteria for diagnosis of diabetes. Reference: Standards of Medical Care in Diabetes 2016, [place] [employer]. Diabetes Care. 2016.39(Suppl 1). Performed By: #### C DIXON APONTE #### [facility] [address] [address] Potassium [Moles/Vol] 3.9 mmol/L Normal 3.7-5.1 [facility] Comment on above: Performed By: #### C FADI BMP #### [facility] [address] [place] [address] Sodium [Moles/Vol] 141 mmol/L Normal 136-144 [facility] Comment on above: Performed By: #### C FADI BMP #### [facility] [address] [place] [address] Urea nitrogen [Mass/Vol] 19 mg/dL Normal 7-21 [facility] Comment on above: Performed By: #### C FADI BMP #### [facility] [address] [place] [address] CBC and Differentialon 06-10 Abs Baso 0.04 k/uL Normal <0.11 [facility] Comment on above: Performed By: #### C DIXON APONTE #### [facility] [address] [place] [address] Abs Mohave 0.71 k/uL Normal <0.87 [facility] Comment on above: Performed By: #### C FADI BMP #### [facility] [address] [place] [address] Abs Neut 3.74 k/uL Normal 1.45-7.50 [facility] Comment on above: Performed By: #### C FADI BMP #### [facility] [address] [place] [address] Basophils/100 WBC (Bld) 0.6 % Normal [facility] Comment on above: Performed By: #### C FADI BMP #### [facility] [address] [place] [address] Eosinophils (Bld) [#/Vol] 0.32 10*3/uL Normal <0.46 [facility] Comment on above: Performed By: #### C BCDIF, BMP #### [facility] [address] Eosinophils/100 WBC (Bld) 4.7 % Normal [facility] Comment on above: Performed By: #### C BCDIF, BMP #### [facility] [address] Erythrocyte distribution width (RBC) [Ratio] 13.6 % Normal 11.5-15.0 [facility] Comment on above: Performed By: #### C BCDIF, BMP #### [facility] [address] Hematocrit (Bld) [Volume fraction] 46.8 % High 36.0-46.0 [facility] Comment on above: Performed By: #### C BCDIF, BMP #### [facility] [address] [place], [place] [phone] Hemoglobin (Bld) [Mass/Vol] 15.4 g/dL Normal 11.5-15.5 [facility] Comment on above: Performed By: #### C BCDIF, BMP #### [facility] [address] [place], [place] [phone] Lymphocytes (Bld) [#/Vol] 1.96 10*3/uL Normal 1.00-4.00 [facility] Comment on above: Performed By: #### C BCDIF, BMP #### [facility] [address] [place], [place] [phone] Lymphocytes/100 WBC (Bld) 29.0 % Normal [facility] Comment on above: Performed By: #### C BCDIF, BMP #### [facility] [address] [place], [place] [phone] MCH (RBC) [Entitic mass] 28.4 pG Normal 26.0-34.0 [facility] Comment on above: Performed By: #### C BCDIF, BMP #### [facility] [address] [place], [place] [phone] MCHC (RBC) [Mass/Vol] 32.9 g/dL Normal 30.5-36.0 [facility] Comment on above: Performed By: #### C BCDIF, BMP #### [facility] [address] [phone] MCV (RBC) [Entitic vol] 86.3 fL Normal 80.0-100.0 [facility] Comment on above: Performed By: #### DIXON DOUGLASS #### [facility] [address] [phone] Monocytes/100 WBC (Bld) 10.5 % Normal [facility] Comment on above: Performed By: #### C FADI, BMP #### [facility] [address] [phone] Neutrophils/100 WBC (Bld) 55.2 % Normal [facility] Comment on above: Performed By: #### C FADI BMP #### [facility] [address] Platelet mean volume (Bld) [Entitic vol] 9.4 fL Normal 9.0-12.7 [facility] Comment on above: Performed By: #### [place] APONTE BMP #### [facility] [address] Platelets (Bld) [#/Vol] 321 10*3/uL Normal 150-400 [facility] Comment on above: Performed By: #### DIXON DOUGLASS #### [facility] [address] RBC (Bld) [#/Vol] 5.42 10*6/uL High 3.90-5.20 [facility] Comment on above: Performed By: #### [place] APONTE BMP #### [facility] [address] WBC (Bld) [#/Vol] 6.77 10*3/uL Normal 3.70-11.00 [facility] Comment on above: Performed By: #### DIXON DOUGLASS #### [facility] [address] [phone] [address] BRAIN WO IVCONon 06-10-[address] BRAIN WO IVCON * * *Final Report* * * DATE OF EXAM: Jun 10 2019 1:22PM [facility] [place] BRAIN [place] IV[place] / PROCEDURE REASON: Head trauma, headache * * * * Physician Interpretation * * * * EXAMINATION: CT BRAIN WO IVCON CLINICAL HISTORY: Head trauma, headache TECHNIQUE: Serial axial images without IV contrast were obtained from the vertex to the foramen magnum. MQ: CTBWO_[id number] CT Dose-Length Product (DLP): 637 mGy*cm CT Dose Reduction Employed: Automated exposure control (AEC) COMPARISON: None. RESULT: Post-operative change: None. Acute change: No evidence of an acute infarct or other acute parenchymal process. Hemorrhage: No evidence of acute intracranial hemorrhage. Mass Lesion / Mass Effect: There is no evidence of an intracranial mass or extraaxial fluid collection. No significant mass effect. Chronic change: None apparent. Parenchyma: There is no significant volume loss. The brain parenchyma is otherwise within normal limits for age. Ventricles: The ventricles are within normal limits of size and configuration for age. Paranasal sinuses and skull base: Mucosal thickening involving the ethmoid air cells. Mild mucosal thickening involving the maxillary sinuses. Images orbits are normal in appearance. The skull base and imaged soft tissues are unremarkable. IMPRESSION: Normal CT of the brain. Corrections Identification Technician: DANIEL Transcribe Date/Time: Jun 10 2019 1:38P Dictated by : RADU GARAY MD This examination was interpreted and the report reviewed and electronically signed by: RADU GARAY MD on Jun 10 2019 1:41PM EST [id number] Normal [facility] ECG COMPLETEon 06-10-2019 ECG COMPLETE NAME : KAMILLA FIGUEROA PID : [id number] : 1960 Gender : Female Race : ORD : [id number] Procedure Date : Jun 10 2019 12:34:16 Edit Date : Jun 10 2019 16:59:51 Diagnosis:NORMAL SINUS RHYTHM RIGHTWARD AXIS CANNOT RULE OUT ANTERIOR INFARCT , AGE UNDETERMINED ABNORMAL ECG 1236 Confirmed by MD HOLLINGSWORTH CHRISTOPHER ([id number]), business editor Becca Sow ([id number]) on 06/10/2019 4:59:45 PM Ventricular Rate : 74 BPM Atrial Rate : 74 BPM P-R Interval : 174 ms QRS Duration : 82 ms Q-T Interval : 382 ms QTC Calculation(Bazett) : 424 ms P Edgefield : 59 degrees R Edgefield : 96 degrees T Edge[place] : 58 degrees Test Reason : Chest Pain Location : 1 : ER 18 Overread By : MD HOLLINGSWORTH CHRISTOPHER Edited By : Becca Sow Referred By : System,System Acquired by : System,System [facility] ED NOTEon 06-10-2019 ED NOTE HNO ID: [id number] Author: Trina (Rn) LENNOX Cano Service: ? Author Type: Registered Nurse Type: ED Notes Filed: 06/12/2019 3:01 PM Note Text: Emergency Services: ED Call Back Questionnaire SERVICE DATE: 06/10/2019 Are you feeling better? Yes Any questions about discharge instructions and follow-up care? No Were you able to make a follow up appointment? Yes Do you have any further questions? No Is there anything that we could have done differently to improve your ED visit? No SIGNATURE: Trina Cano RN PATIENT NAME: Kamilla Figueroa DATE: June 12, 2019 TIME: 3:01 PM [facility] ED NOTE HNO ID: [id number] Author: Rocio EscalanteRn) LENNOX Cardenas Service: ? Author Type: Registered Nurse Type: ED Notes Filed: 06/10/2019 2:42 PM Note Text: [facility] ED NOTE HNO ID: [id number] Author: Deepika EscalanteRn) LENNOX Saucedo Service: Emergency Medicine Author Type: Registered Nurse Type: ED Notes Filed: 06/10/2019 12:22 PM Note Text: Pt presents with c/o continued headache and erratic behavior following a concussion 1 week ago. accompanies pt, states pt has been increasingly agitated and angry over the past week. [facility] ED PROV NOTEon 06-10-2019 ED PROV NOTE HNO ID: [id number] Author: Grayson Pacheco (Pa) Service: ? Author Type: Physician Digital Photographic Printer Type: ED Provider Notes Filed: 06/10/2019 2:13 PM Note Text: ED Provider Note Patient Name: Kamilla Figueroa SERVICE DATE: 06/10/19 History Patient presents with: Agitation Head Injury 58-year-old female with no significant PMH presents with a ten-day history of headaches, agitation after sustaining a head injury. Patient states 10 days ago she stood up into a wooden striking the back left of her head however was not assessed at that time. She states she started to develop headaches and emesis so 7 days ago she was evaluated at a hospital where CT of the brain was negative and she was prescribed Zofran, told to follow up in 1 week if symptoms do not get better. Per her and her over the last week she's had continued dizziness with movement in her vision, emesis, continued frontal headache, occasional slurred speech, photophobia, bouts of irrational agitation and occasional tingling along the right side of her body. She denies chest pain, shortness of breath, fevers, diaphoresis, lightheadedness, syncope, visual changes, limb weakness, falls, difficulty swallowing, confusion History provided by: Patient PAST MEDICAL HISTORY Diagnosis Date - Concussion - GERD (gastroesophageal reflux disease) - Psychiatric disorder PAST SURGICAL HISTORY Procedure Laterality Date - SECTION HX - CHOLECYSTECTOMY HX - HYSTERECTOMY HX No family history on file. Social History Tobacco Use - Smoking status: Former Smoker - Smokeless tobacco: Never Used Substance and Sexual Activity - Alcohol use: Yes Alcohol/week: 7.0 standard drinks Types: 7 Glasses of wine per week Frequency: Never - Drug use: Never - Sexual activity: Not on file ALLERGIES Allergen Reactions - Bee Sting Other: See Comments - Sulfa (Sulfonamide * Unknown Review of Systems Constitutional: Negative for chills, fatigue and fever. HENT: Negative for sinus pressure, sinus pain and trouble swallowing. Eyes: Positive for photophobia. Negative for visual disturbance. Respiratory: Negative for cough, chest tightness and shortness of breath. Cardiovascular: Negative for chest pain, palpitations and leg swelling. Gastrointestinal: Positive for nausea and vomiting. Negative for abdominal pain and diarrhea. Musculoskeletal: Negative for arthralgias, back pain, neck pain and neck stiffness. Skin: Negative for color change. Allergic/Immunologic: Negative for immunocompromised state. Neurological: Positive for dizziness, speech difficulty and headaches. Negative for tremors, syncope, weakness, light-headedness and numbness. Psychiatric/Behaviora l: Negative for behavioral problems and confusion. Physical Exam BP 120/82 Pulse 87 Temp (Src) 98.6 (Oral) Resp 20 Wt 150 lb (68.0kg) SpO2 98% O2 Therapy: Room Air Physical Exam Constitutional: She is oriented to person, place, and time. She appears well-developed and well-nourished. No distress. Well appearing female sitting on exam bed in NAD, interactive and appropriate, AxO x 3 HENT: Head: Normocephalic and atraumatic. Mouth/Throat: Oropharynx is clear and moist. No oropharyngeal exudate. Eyes: Pupils are equal, round, and reactive to light. Conjunctivae and EOM are normal. Neck: Normal range of motion. Neck supple. No tracheal deviation present. FROM of neck in all directions, no midline or paraspinal tenderness. No stepoff, deformity or ecchymosis Cardiovascular: Normal rate, regular rhythm, normal heart sounds and intact distal pulses. Exam reveals no gallop and no friction rub. No murmur heard. Pulmonary/Chest: Effort normal and breath sounds normal. No stridor. No respiratory distress. She has no wheezes. She has no rales. She exhibits no tenderness. Abdominal: Soft. Bowel sounds are normal. She exhibits no distension and no mass. There is no tenderness. There is no rebound and no guarding. No hernia. Musculoskeletal: Normal range of motion. She exhibits no edema or tenderness. Neurological: She is alert and oriented to person, place, and time. No cranial nerve deficit or sensory deficit. She exhibits normal muscle tone. Coordination normal. 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 Capillary refill takes less than 2 seconds. She is not diaphoretic. Psychiatric: She has a normal mood and affect. Nursing note and vitals reviewed. Diagnostic Testing ED Labs Ordered and Reviewed - No data to display Procedures ED Course / Clinical Impression Clinical Impressions as of Jun 10 1408 Post concussion syndrome MDM / Disposition / Plan Course: Vital signs were reviewed. Triage records were reviewed. Medical records were reviewed. Nursing notes were reviewed and incorporated. The following medications were administered: zofran EKG Interpretation: RHYTHM: Normal sinus rhythm at 68 beats per minute AXIS: Right axis deviation INTERVALS: Normal KS interval QRS COMPLEX: Normal ST SEGMENT: Nonspecific ST-T changes QT INTERVAL: Normal COMPARED WITH PRIOR: None available Labs Reviewed CBC + DIFF - Abnormal; Notable for the following components: RBC 5.42 (*) Hematocrit 46.8 (*) All other components within normal limits URINALYSIS - Abnormal; Notable for the following components: Specific Ione, Ur >1.029 (*) Hemoglobin/Blood,Ur Small (*) All other components within normal limits URINE MICROSCOPIC - Abnormal; Notable for the following components: Bacteria Few (*) All other components within normal limits BASIC METABOLIC PNL Radiographs were reviewed CT brain: IMPRESSION: Normal CT of the brain. BP 120/82 Pulse 87 Temp 37 ?C (98.6 ?F) (Oral) Resp 20 Wt 68 kg (150 lb) SpO2 98% Medical Decision Makin-year-old female with no significant PMH presents with a ten-day history of headaches, agitation after sustaining a head injury. On exam well appearing female sitting on exam bed in NAD, interactive and appropriate, AxO x 3. FROM of neck in all directions, no midline or paraspinal tenderness. No stepoff, deformity or ecchymosis. 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 Patient likely has postconcussion syndrome, I spoke with Dr. Jansen of therapy neurology recommended starting Elavil 25 mg (he is aware she takes Paxil) and having her follow up with the concussion clinic. She also states Zofran has been given her headaches are prescribed her Compazine. Vital signs stable, generally well-appearing and in NAD. She is neurologically intact with an NIH of 0. No acute signs CN on exam over to do continued symptoms she likely has postconcussion syndrome needing follow-up with neurology On reassessment VS stable and patient in NAD. Educated patient on condition and disposition. They expressed understanding and agreement. Told to follow up with PCP for further evaluation as needed. Advised to return to ED if develop new or concerning signs Plan: The patient was discharged BONITA Dhillon Disposition The patient was discharged. Counseled patient regarding lab results, radiology results and suspected diagnosis. As well as the need for follow-up. Discharged home with verbal and written instructions. They were instructed to return as needed for persistent or worsening symptoms or any new concerns. Condition at disposition is stable. SIGNATURE: BONITA Dhillon (Pa) 06/10/19 1413 Normal [facility] Urinalysison 06-10-2019 Bilirubin, Urine Negative Normal Negative [facility] Comment on above: Performed By: #### U A, UAMIC #### [facility] [address] [address] Clarity (U) Clear Normal Clear [facility] Comment on above: Performed By: #### U A, UAMIC #### [facility] [address] [address] Color (U) Yellow Normal Yellow [facility] Comment on above: Performed By: #### U A, UAMIC #### [facility] [address] [address] Glucose Ql (U) Negative Normal Negative [facility] Comment on above: Performed By: #### U A, UAMIC #### [facility] [address] [address] Hemoglobin/Blood,Ur Small Critically abnormal Negative [facility] Comment on above: Performed By: #### U A, UAMIC #### [facility] [address] [address] Ketones Ql (U) Negative Normal Negative [facility] Comment on above: Performed By: #### U A, UAMIC #### [facility] [address] [address] Leukest Negative Normal Negative [facility] Comment on above: Performed By: #### U A, UAMIC #### [facility] [address] [place] [address] Nitrite Ql (U) Negative Normal Negative [facility] Comment on above: Performed By: #### U A, UAMIC #### [facility] [address] [place] [address] pH (Bld) 6.0 Normal 5.0-8.0 [facility] Comment on above: Performed By: #### U A, UAMIC #### [facility] [address] [place] [address] Protein (U) [Mass/Vol] Negative Normal Negative [facility] Comment on above: Performed By: #### U A, UAMIC #### [facility] [address] [place] [address] Specific Ione, Ur >1.029 High 1.001-1.029 [facility] Comment on above: Performed By: #### U A, UAMIC #### [facility] [address] [phone] Urobilinogen Qn (U) 0.2 Normal 0.2-1.0 [facility] Comment on above: Performed By: #### U A, UAMIC #### [facility] [address] [place] [address] Urine Microscopic (FOR LAB U SE ONLY)on 06-10-2019 Bacteria LM.HPF (Urine sed) [#/Area] Few Critically abnormal 0 [facility] Comment on above: Performed By: #### U A, UAMIC #### [facility] [address] [place] [address] Cast SEE COMMENT Normal 0 [facility] Comment on above: Result Comment: 0 Performed By: #### U A, UAMIC #### [facility] [address] [place] [address] Epithelial cells LM.HPF (Urine sed) [#/Area] SEE COMMENT [facility] Comment on above: Result Comment: 0-5 Squamous Epithelial Cells Performed By: #### U A, UAMIC #### [facility] [address] [place] [address] RBC (U) [#/Vol] 0-3 Normal 0-3 [facility] Comment on above: Performed By: #### U A, UAMIC #### [facility] [address] [place] [address] WBC (Bld) [#/Vol] 0-5 Normal 0-5 [facility] Comment on above: Performed By: #### U A, UAMIC #### [facility] [address] [place] [address] PROGRESSon 04-03-2019 Protein mass conc HNO ID: [id number] Author: Veronica White Service: ? Author Type: Physical Therapist Type: Progress Notes Filed: 04/03/2019 3:23 PM Note Text: 04/03/2019 [facility] PHYSICAL THERAPY DISCONTINUANCE OF CARE Plan of Care Period: Start of Care Date: 02/11/19 Last Visit Date: 02/18/2018 Therapy Program: The following is a summary of the interventions provided for this episode of care; Therapeutic exercise and Patient/Family/Caregi rachna Education Assessment: Based on most recent visit, patient was progressing as expected toward functional goals based on home exercise program compliance and pain levels. Unable to formally assess goal achievement due to non-compliance with therapy plan of care. Reason for Discontinuation of Care: Patient has not returned to therapy or scheduled additional follow-up appointments. Veronica White PT Normal [facility] CNTHERAPYon 02-18-2019 CNTHERAPY OT/PT/Speech Visit (PTWS) HENRYLC ([id number]) 1960 F Date Time Provider Department 02/18/19 1:15 PM VERONICA WHITE Date Time Provider Department Center 02/18/2019 1:15 PM [id number], DIANA PTWS [facility] Reason for Visit: Physical Therapy [503] PT Discharge [752] Reason For Visit History Recorded Primary Visit Diagnosis:Rotator cuff tendonitis, right [M75.81] Other Visit Diagnosis:Impingement syndrome of right shoulder [M75.41] Allergies As of Date: 02/18/2019 Noted Allergy Reaction SULFA (SULFONAMIDE ANTIBIOTICS) 02/04/2019 16 - Unknown Date Reviewed: Never Reviewed Prescriptions as of 02/18/2019 Sig: PAROXETINE 20 MG TABLET Take 20 mg by mouth once valentin* Progress Notes: Veronica White PT 02/18/2019 3:47 PM Signed Episode Visit Count: 2 Therapist That Will Oversee The Plan Of Care: Veronica White PT Start of Care Date: 02/11/19 Onset Date: 05/13/18 Patient Identified by Name and Date of : Yes REHABIL[facility] AND SPORTS [facility]ER[facility] PHYSICAL THERAPY TREATMENT NOTE ASSESSMENT: LcDeborah Figueroa reported improvements in sx of the R shoulder. She contributes the reduction in pain to a combination of physical therapy exercises, cortisone shot, and awareness/avoidance of painful positioning. Pt demonstrated mild difficulty with flexion AAROM on the R due to a pinching in the shoulder. The patient feels a pinch around 110 degrees of R shoulder flexion, that goes away at end range. Palpation of shoulder indicated clunking during movements with large ROM. The patient will continue to benefit from continued skilled physical therapy to improve pain, strength, pain free shoulder ROM, and functional movements. PLAN FOR NEXT VISIT: Add AAROM R shld Ext to HEP. Perform extension and scaption isometrics, chin tucks, Hoist machine Rows, banded ER with peach band SUBJECTIVE: Patient Reason for Visit: Pt reports feeling better. She believes that the combination of the cortisone, exercises, and understanding of limitations is helping her. Performing HEP 2-3x a day. Pain: Pain Pain Level: 4 Pain Location: Shoulder - Right Description: Dull Frequency: Continuous Post Treatment Pain Post Treatment Pain Score: (Not Reported) Post Treatment Pain Location: Shoulder - Right OBJECTIVE MEASURES WITH LEVEL OF FUNCTION: Palpation of shoulder indicated clunking during movements with large ROM. Patient demonstrated good engagement of the rhomboid and low trap during shoulder exercises. TREATMENT: Therapeutic Exercise: 1: Standing R shoulder Side to side/ forward backward pendulums x20 2: Standing R shoulder CCW and CW pendulums x 20 6: *AAROM flexion 10 sec hold x 10 7: *AAROM scaption 10 sec hold x 10 8: *AAROM ER 10 sec hold x 10 10: Standing Alphabet tracing on mat table x1 11: *Wall push ups with SA plus x15 12: *Isometric flexion 10 sec hold x 10 13: Isometric ER 10 sec hold 14: *Standing Tracing A-Z on Wall at shoulder height. Cues to perform in pain free range. Skilled Intervention: Patient was educated in proper exercise technique and purpose for exercises. Reviewed and educated patient on additions/changes for home exercise program as above (*) Skilled judgment was provided in selection of appropriate interventions. Provided written instruction for home exercise program to facilitate proper performance and compliance. Correct performance of therapeutic exercises was facilitated with verbal, visual and tactile cuing. Education on labral pathology, purpose of exercises and proper progression of exercises was provided. Billing: [facility]: Therapeutic Exercise ([id number]): 1:1 time: 42 minutes (3 units: 38-52 mins) Total time: 42 minutes Fabby Novak, DIAZ White PT Direct supervision was provided by the licensed physical therapist for the entire treatment session and licensed provider made all clinical decisions. Previous Version Veronica White PT 04/03/2019 3:23 PM Signed 04/03/2019 [facility] PHYSICAL THERAPY DISCONTINUANCE OF CARE Plan of Care Period: Start of Care Date: 02/11/19 Last Visit Date: 02/18/2018 Therapy Program: The following is a summary of the interventions provided for this episode of care; Therapeutic exercise and Patient/Family/Caregi rachna Education Assessment: Based on most recent visit, patient was progressing as expected toward functional goals based on home exercise program compliance and pain levels. Unable to formally assess goal achievement due to non-compliance with therapy plan of care. Reason for Discontinuation of Care: Patient has not returned to therapy or scheduled additional follow-up appointments. Veronica White PT [facility] PROGRESSon 02-18-2019 Protein mass conc HNO ID: [id number] Author: Veronica (Marlon) Christopher Service: ? Author Type: Physical Therapist Type: Progress Notes Filed: 02/18/2019 3:47 PM Note Text: Episode Visit Count: 2 Therapist That Will Oversee The Plan Of Care: Veronica White PT Start of Care Date: 02/11/19 Onset Date: 05/13/18 Patient Identified by Name and Date of : Yes REHABILITATION AND SPORTS THERAPY PHYSICAL THERAPY TREATMENT NOTE ASSESSMENT: Kamilla Figueroa reported improvements in sx of the R shoulder. She contributes the reduction in pain to a combination of physical therapy exercises, cortisone shot, and awareness/avoidance of painful positioning. Pt demonstrated mild difficulty with flexion AAROM on the R due to a pinching in the shoulder. The patient feels a pinch around 110 degrees of R shoulder flexion, that goes away at end range. Palpation of shoulder indicated clunking during movements with large ROM. The patient will continue to benefit from continued skilled physical therapy to improve pain, strength, pain free shoulder ROM, and functional movements. PLAN FOR NEXT VISIT: Add AAROM R shld Ext to HEP. Perform extension and scaption isometrics, chin tucks, Hoist machine Rows, banded ER with peach band SUBJECTIVE: Patient Reason for Visit: Pt reports feeling better. She believes that the combination of the cortisone, exercises, and understanding of limitations is helping her. Performing HEP 2-3x a day. Pain: Pain Pain Level: 4 Pain Location: Shoulder - Right Description: Dull Frequency: Continuous Post Treatment Pain Post Treatment Pain Score: (Not Reported) Post Treatment Pain Location: Shoulder - Right OBJECTIVE MEASURES WITH LEVEL OF FUNCTION: Palpation of shoulder indicated clunking during movements with large ROM. Patient demonstrated good engagement of the rhomboid and low trap during shoulder exercises. TREATMENT: Therapeutic Exercise: 1: Standing R shoulder Side to side/ forward backward pendulums x20 2: Standing R shoulder CCW and CW pendulums x 20 6: *AAROM flexion 10 sec hold x 10 7: *AAROM scaption 10 sec hold x 10 8: *AAROM ER 10 sec hold x 10 10: Standing Alphabet tracing on mat table x1 11: *Wall push ups with SA plus x15 12: *Isometric flexion 10 sec hold x 10 13: Isometric ER 10 sec hold 14: *Standing Tracing A-Z on Wall at shoulder height. Cues to perform in pain free range. Skilled Intervention: Patient was educated in proper exercise technique and purpose for exercises. Reviewed and educated patient on additions/changes for home exercise program as above (*) Skilled judgment was provided in selection of appropriate interventions. Provided written instruction for home exercise program to facilitate proper performance and compliance. Correct performance of therapeutic exercises was facilitated with verbal, visual and tactile cuing. Education on labral pathology, purpose of exercises and proper progression of exercises was provided. Billing: [facility]: Therapeutic Exercise ([id number]): 1:1 time: 42 minutes (3 units: 38-52 mins) Total time: 42 minutes Fabby Novak, DIAZ White, PT Direct supervision was provided by the licensed physical therapist for the entire treatment session and licensed provider made all clinical decisions. [facility] CNTHERAPYon 02-11-2019 CNTHERAPY OT/PT/Speech Visit (PTWS) KAMILLA FIGUEROA ([id number]) 1960 F Date Time Provider Department 02/11/19 2:45 PM VERONICA WHITE (PT) PTWS Date Time Provider Department Center 02/11/2019 2:45 PM [id number], DIANA (PT)PTWS [facility] Reason for Visit: PT Eval [747] Patient Education [91] Primary Visit Diagnosis:Rotator cuff tendonitis, right [M75.81] Other Visit Diagnosis:Impingement syndrome of right shoulder [M75.41] Allergies As of Date: 02/11/2019 Noted Allergy Reaction SULFA (SULFONAMIDE ANTIBIOTICS) 02/04/2019 16 - Unknown Date Reviewed: Never Reviewed Prescriptions as of 02/11/2019 Sig: PAROXETINE 20 MG TABLET Take 20 mg by mouth once valentin* Progress Notes: Veronica White PT 02/13/2019 9:56 AM Signed Episode Visit Count: 1 Therapist That Will Oversee The Plan Of Care: Veronica White PT Start of Care Date: 02/11/19 Onset Date: 05/13/18 Patient Identified by Name and Date of : Yes REHABILITATION AND SPORTS THERAPY PHYSICAL THERAPY EVALUATION PLAN OF CARE: Assessment: Kamilla Figueroa presents with the diagnosis of rotator cuff tendonitis and impingement syndrome of the right shoulder. She presents with full but painful ROM and decreased strength in her R shoulder. Pt reports pinching and clunking in her R shoulder during specific movements (R shoulder flexion and abduction). The patient tested positive for Neer's, Saucedo Froy, and Empty Can. She may benefit from skilled therapy services to improve pain, strength, painfree ROM, and functional movements. Prognosis: Good Good due to: positive past response to therapy;good support system/ coping skills;good overall health status Goals for Episode of Care: created on 02/11/19 through 03/27/19 Elliott in home exercise program. Patient will decrease pain rating by 2 points to meet minimal clinical important difference for numeric pain rating scale. (Goal: 3/10) Patient will increase strength of R shoulder muscles globally to 4/5 to allow for return to prior functional status and perform ADLs. 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 Planned Interventions, Frequency, and Duration: Current Frequency: 1x/week Duration: 4 weeks Total Number of Visits Planned: 4 Planned Treatment Interventions: Therapeutic exercise;Manual therapy;Functional training;Neuromuscula r re-education;Patient/ Family/Caregiver Education;Self-skilled nursing management PLAN FOR NEXT VISIT: Pelvic Floor Therapist name in rum[place]. Hands on wall to perform protraction and retraction of shoulder blades. Standing rows with theraband(Have pt schedule more visits.) Patient demonstrates good understanding of plan of care and treatment. The above goals and plan of care were discussed and agreed upon by patient/family. SUBJECTIVE: Kamilla Figueroa is a 58 year old female seen today for R shoulder pain. 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 Patient got a cortisone shot 02/04/19 and felt like she was in [facility] for two days then the R shoulder pain comes back. Patient has difficulty giving her R shoulder a rest. Pain in R shoulder gets worse at the end of the day goes to 8-10. 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 Falls Interview: No positive findings with falls interview Pain: Pain Pain Level: 5 Pain Location: Shoulder - Right;Elbow - Right(Tricept) Description: Dull;Aching Frequency: Continuous Detailed Pain Score: Yes Worst Pain Score: 10/10 Best Pain Score: 0/10(with cortisone injection for 2 days) Post Treatment Pain Post Treatment Pain Score: 3/10 Post Treatment Pain Location: Shoulder - Right Post Treatment Pain Description: Dull;Aching OBJECTIVE MEASURES WITH LEVEL OF FUNCTION: Posture / Alignment Posture: Elevated shoulder -left Shoulder Observations R Shoulder Palpation Tenderness: AC joint;Rotator cuff muscles;Other(tendern ess in supraspinatus) R Shoulder Palpation Tenderness Comments: insertion point of the deltoid. UE AROM R Shoulder Flex: 173 Degrees(Catching pain at 60, unable to lower ) R Shoulder ABduction: 170 Degrees(Pain at 50' Clunk at 100' ) R Shoulder Internal Rotation (Functional): T12 R Shoulder External Rotation (Functional): T4 L Shoulder Flex: 174 Degrees L Shoulder ABduction: 170 Degrees L Shoulder Internal Rotation (Functional): level of T9 L Shoulder External Rotation (Functional): level T4 UE and Cervical Strength Strength Tested: Shoulder All R Shoulder Extension: 4/5 R Shoulder Flexion: 3-/5 R Shoulder Abduction (C5): 4+/5(performed in scaption) R Shoulder Internal Rotation: 4-/5 R Shoulder External Rotation: 3-/5 R Elbow Extension (C7): 3/5 R Elbow Flexion (C6): 4/5 L Shoulder Extension: 5/5 L Shoulder Flexion: 5/5 L Shoulder Abduction (C5): 5/5 L Shoulder Internal Rotation: 5/5 L Shoulder External Rotation: 5/5 L Elbow Extension (C7): 4/5 L Elbow Flexion (C6): 5/5 Special Tests - Shoulder Shoulder Special Tests: Neer;Saucedo-Froy; Empty Can Empty Can: Right Positive;Left Negative Lewis-Froy: Right Positive Neer: Right Positive Education: Education Learning Preferences: Demonstration;Explana tion;Performance;Prin kimberlee Materials Barriers: None Learning/educational needs: Home exercise program;Plan of Care;Posture Education Provided: Yes, see treatment interventions for education provided Education Provided To: Patient Education Mode/Type: Demonstration;Explana tion/Discussion;Liter ature/Printed Materials;Performance ;Teach Back Response to Education/Teach Back: States/Identifies TREATMENT: Evaluation Therapeutic Exercise: 1: *Standing R shoulder Side to side pendulums x10 2: *Standing R shoulder CCW and CW pendulums x 10 3: *Standing scapular squeezes x10 4: *Standing R shoulder bent over rows x10 5: *Kegal Exercises pulling in a marble concept or stopping passing gas 5 sec holds Skilled Intervention: Patient was educated in proper exercise technique and purpose for exercises. Reviewed and educated patient on additions/changes for home exercise program as above (*) Skilled judgment was provided in selection of appropriate interventions. Provided written instruction for home exercise program to facilitate proper performance and compliance. Correct performance of therapeutic exercises was facilitated with verbal, visual and tactile cuing. Education as noted: Shoulder model used to educate patient on shoulder girdle anatomy and the importance of proper exercise form. Billing:[facility]: Evaluation - Low Complexity ([id number]) Therapeutic Exercise ([id number]): 1:1 time: 25 minutes (2 units: 23-37 mins) Total time: 45 minutes Veronica White PT, DPT, CLT DIAZ Peck Direct supervision was provided by the licensed physical therapist for the entire treatment session and licensed provider made all clinical decisions. Previous Version [facility] PROGRESSon 02-11-2019 Protein mass conc HNO ID: [id number] Author: Veronica Hampton) Christopher Service: ? Author Type: Physical Therapist Type: Progress Notes Filed: 02/13/2019 9:56 AM Note Text: Episode Visit Count: 1 Therapist That Will Oversee The Plan Of Care: Veronica White PT Start of Care Date: 02/11/19 Onset Date: 05/13/18 Patient Identified by Name and Date of : Yes REHABILITATION AND SPORTS THERAPY PHYSICAL THERAPY EVALUATION PLAN OF CARE: Assessment: Kamilla Figueroa presents with the diagnosis of rotator cuff tendonitis and impingement syndrome of the right shoulder. She presents with full but painful ROM and decreased strength in her R shoulder. Pt reports pinching and clunking in her R shoulder during specific movements (R shoulder flexion and abduction). The patient tested positive for Neer's, Saucedo Froy, and Empty Can. She may benefit from skilled therapy services to improve pain, strength, painfree ROM, and functional movements. Prognosis: Good Good due to: positive past response to therapy;good support system/ coping skills;good overall health status Goals for Episode of Care: created on 02/11/19 through 03/27/19 Elliott in home exercise program. Patient will decrease pain rating by 2 points to meet minimal clinical important difference for numeric pain rating scale. (Goal: 3/10) Patient will increase strength of R shoulder muscles globally to 4/5 to allow for return to prior functional status and perform ADLs. 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 Planned Interventions, Frequency, and Duration: Current Frequency: 1x/week Duration: 4 weeks Total Number of Visits Planned: 4 Planned Treatment Interventions: Therapeutic exercise;Manual therapy;Functional training;Neuromuscula r re-education;Patient/ Family/Caregiver Education;Self-skilled nursing management PLAN FOR NEXT VISIT: Pelvic Floor Therapist name in [place]. Hands on wall to perform protraction and retraction of shoulder blades. Standing rows with theraband(Have pt schedule more visits.) Patient demonstrates good understanding of plan of care and treatment. The above goals and plan of care were discussed and agreed upon by patient/family. SUBJECTIVE: Kamilla Figueroa is a 58 year old female seen today for R shoulder pain. 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 Patient got a cortisone shot 02/04/19 and felt like she was in [place] for two days then the R shoulder pain comes back. Patient has difficulty giving her R shoulder a rest. Pain in R shoulder gets worse at the end of the day goes to 8-10. 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 Falls Interview: No positive findings with falls interview Pain: Pain Pain Level: 5 Pain Location: Shoulder - Right;Elbow - Right(Tricept) Description: Dull;Aching Frequency: Continuous Detailed Pain Score: Yes Worst Pain Score: 10/10 Best Pain Score: 0/10(with cortisone injection for 2 days) Post Treatment Pain Post Treatment Pain Score: 3/10 Post Treatment Pain Location: Shoulder - Right Post Treatment Pain Description: Dull;Aching OBJECTIVE MEASURES WITH LEVEL OF FUNCTION: Posture / Alignment Posture: Elevated shoulder -left Shoulder Observations R Shoulder Palpation Tenderness: AC joint;Rotator cuff muscles;Other(tendern ess in supraspinatus) R Shoulder Palpation Tenderness Comments: insertion point of the deltoid. UE AROM R Shoulder Flex: 173 Degrees(Catching pain at 60, unable to lower ) R Shoulder ABduction: 170 Degrees(Pain at 50' Clunk at 100' ) R Shoulder Internal Rotation (Functional): T12 R Shoulder External Rotation (Functional): T4 L Shoulder Flex: 174 Degrees L Shoulder ABduction: 170 Degrees L Shoulder Internal Rotation (Functional): level of T9 L Shoulder External Rotation (Functional): level T4 UE and Cervical Strength Strength Tested: Shoulder All R Shoulder Extension: 4/5 R Shoulder Flexion: 3-/5 R Shoulder Abduction (C5): 4+/5(performed in scaption) R Shoulder Internal Rotation: 4-/5 R Shoulder External Rotation: 3-/5 R Elbow Extension (C7): 3/5 R Elbow Flexion (C6): 4/5 L Shoulder Extension: 5/5 L Shoulder Flexion: 5/5 L Shoulder Abduction (C5): 5/5 L Shoulder Internal Rotation: 5/5 L Shoulder External Rotation: 5/5 L Elbow Extension (C7): 4/5 L Elbow Flexion (C6): 5/5 Special Tests - Shoulder Shoulder Special Tests: Neer;Saucedo-Froy; Empty Can Empty Can: Right Positive;Left Negative Saucedo-Froy: Right Positive Neer: Right Positive Education: Education Learning Preferences: Demonstration;Explana tion;Performance;Prin kimberlee Materials Barriers: None Learning/educational needs: Home exercise program;Plan of Care;Posture Education Provided: Yes, see treatment interventions for education provided Education Provided To: Patient Education Mode/Type: Demonstration;Explana tion/Discussion;Liter ature/Printed Materials;Performance ;Teach Back Response to Education/Teach Back: States/Identifies TREATMENT: Evaluation Therapeutic Exercise: 1: *Standing R shoulder Side to side pendulums x10 2: *Standing R shoulder CCW and CW pendulums x 10 3: *Standing scapular squeezes x10 4: *Standing R shoulder bent over rows x10 5: *Kegal Exercises pulling in a marble concept or stopping passing gas 5 sec holds Skilled Intervention: Patient was educated in proper exercise technique and purpose for exercises. Reviewed and educated patient on additions/changes for home exercise program as above (*) Skilled judgment was provided in selection of appropriate interventions. Provided written instruction for home exercise program to facilitate proper performance and compliance. Correct performance of therapeutic exercises was facilitated with verbal, visual and tactile cuing. Education as noted: Shoulder model used to educate patient on shoulder girdle anatomy and the importance of proper exercise form. Billing:[facility]: Evaluation - Low Complexity ([id number]) Therapeutic Exercise ([id number]): 1:1 time: 25 minutes (2 units: 23-37 mins) Total time: 45 minutes Veronica White, PT, DPT, CLT Fabby Novak, SPT Direct supervision was provided by the licensed physical therapist for the entire treatment session and licensed provider made all clinical decisions. [facility] CNOVon 02-04-2019 CNOV Office Visit (SPRTST ) KAMILLA FIGUEROA ([id number]) 1960 F Date Time Provider Department 02/04/19 9:00 AM MICKI BARAHONA During your visit today, we recorded the following information about you: Micki Barahona MD 02/04/2019 9:46 AM Signed Micki Barahona M.D. iron erector Director,[facility] [address] [place] [address]. [place] [address] INITIAL ENCOUNTER Chief Complaint: Right shoulder pain HPI: Kamilla Figueroa is self-referred for evaluation of the above problem. Kamilla Figueroa is a 58 year old female who presents with the above complaint. Hand dominance: Right. Patient presents to clinic for the first time for elevation of right shoulder pain. Patient says no traumatic injury to the shoulder. Pain prevents her from going to sleep. Pain is worse with overhead activity. Patient has not had any steroid injections or physical therapy. Taking aspirin for pain intermittently. She denies having any neck pain, radicular pain, numbness/tingling in the arm. Patient does not note any associated mechanical symptoms. History of prior injury or surgery opposite shoulder: No. Is this a [facility] injury? : No. REVIEW OF SYSTEMS: Constitutional: patient denies any recent fever or significant change in weight Cardiovascular: patient denies any chest pain at rest Respiratory: patient denies any shortness of breath or cough Gastrointestinal: patient denies any current abdominal discomfort Integumentary: patient denies any recent skin changes Musculoskeletal: as noted in the HPI Neurologic: as noted in the HPI Endocrine: patient denies a current diagnosis of diabetes Hematologic/Lymphatic : patient denies any easily bleeding, any recent infection and denies any recent observable lymph node enlargement Psychologic: negative for any recent depression or anxiety issues No family history on file. No past medical history on file. No past surgical history on file. ALLERGIES Allergen Reactions - Sulfa (Sulfonamide * Unknown Problem List: reviewed and updated. Contributory Co-morbidities: Evaluated and managed. 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 Social History Socioeconomic History Marital status: Spouse name: Not on file Number of children: Not on file Years of education: Not on file Highest education level: Not on file Social Needs Financial resource strain: Not on file Food insecurity - worry: Not on file Food insecurity - inability: Not on file Transportation needs - medical: Not on file Transportation needs - non-medical: Not on file Occupational History Not on file Tobacco Use Smoking status: Not on file Substance and Sexual Activity Alcohol use: Not on file Drug use: Not on file Sexual activity: Not on file Other Topics Concerns: Not on file Social History Narrative Not on file Current Outpatient Medications: PARoxetine (PAXIL) 20 mg tablet Take 20 mg by mouth once daily. No current facility-administered medications for this visit. Physical Exam: There were no vitals taken for this visit. Constitutional: Pleasant, well-appearing, no acute distress. Resp: breathing is unlabored without audible wheeze Vascular: Normal pedal and radial pulses, no cyanosis, no venous stasis changes Skin: No overlying skin change, ecchymosis, or erythema. Psychiatric: Pleasant, direct, appropriate mood and affect General Orthopaedic Examination: Ambulates well. No other major joint abnormalities noted. 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 Pulses: 2+ radial, ulnar; hands warm bilat, <2sec CRCompartments: soft and compressible Cervical Spine:Appropriate range of motion, negative midline and paraspinal muscle tenderness, negative stepoff, and negative Spurling's test. Focused Upper Extremity Musculoskeletal/Neuro logic Exam: Right Shoulder Examination Well appearing, no acute distress Visual inspection of the shoulder reveals no significant atrophy ROM examination - FF - Passive 180, Active 160 limited by pain Abd - Passive 180, Active 160 meters by pain ER - Passive 50, Active 50 IR - upper lumbar Palpation reveals pain at the greater tuberosity. No tenderness palpation of the acromial clavicular joint, glenohumeral joint or biceps tendon Deltoid motor intact ant, middle, and posterior - Belly press - ER Lag Sign 5/5 Resisted Abduction in the plane of the scapula (supra) 5/5 Resisted ER with arm at 0 degrees of abduction (infra) 5/5 Resisted ER with arm at 90 degrees of abduction (teres minor) - Drop Arm + Neer Impingement + Saucedo Froy Sensation intact to Axillary, Median, Ulnar, Radial Nerves Motor to Axillary, Median, Ulnar, Radial Nerves intact Pulses 2/4 radial bilaterally with brisk capillary refill Negative speed's and Yergason's. No Luis M deformity Radiographic studies: Patient denied x-rays today. Assessment/Primary Diagnosis: (M75.81) Rotator cuff tendonitis, right (primary encounter diagnosis) (M75.41) Impingement syndrome of right shoulder Plan/Medical Decision Making: The nature of the problem and all indicated treatment options available were discussed in detail with the patient. I have recommended: 1. Medication: OTC NSAIDS/anaglesics as directed, in the absence of medical contraindication 2. Test(s)/Imaging/Refer ral(s): None 3. Intervention: Risks, benefits, alternatives and expected outcomes of injection were discussed. After verbal consent, allergy check, time out and site identification, under aseptic conditions the Right shoulder subacromial space was injected with 4 cc 1% lidocaine and 40 mg kenalog. A sterile bandage was applied. The procedure was tolerated well. Icing instructions were given.The patient is instructed to call the office with any adverse reactions. and Graduated physical therapy program 4. Follow-up: As needed. If no improvement of symptoms we can consider an MRI All of Kamilla Figueroa questions were answered today. She expressed a clear understanding of our discussion and is in agreement with the outlined treatment plan. Arsenio Osborne MD CC:No Pcp Micki Barahona MD 02/04/2019 9:46 AM Signed Assessment/Primary Diagnosis: (M75.81) Rotator cuff tendonitis, right (primary encounter diagnosis) (M75.41) Impingement syndrome of right shoulder Fellow/resident history and physical examination reviewed and confirmed by the attending physician. The attending physician obtained additional history and performed focused physical examination. All imaging and laboratory studies were reviewed by the attending physician with fellow/resident and the patient. Treatment care plan discussed with the fellow/resident and completely explained to the patient. The attending physician was present for and supervised any injections. All of the patient's questions were answered by the attending physician. Referring Provider: NO PCP [[id number]] Allergies As of Date: 02/04/2019 Noted Allergy Reaction SULFA (SULFONAMIDE ANTIBIOTICS) 02/04/2019 16 - Unknown Date Reviewed: Never Reviewed Reason for Visit: Pain (Shoulder Pain) [5763] Primary Visit Diagnosis:Rotator cuff tendonitis, right [M75.81] Other Visit Diagnosis:Impingement syndrome of right shoulder [M75.41] Order(s):CONSULT TO PHYSICAL THERAPY [9032] Order #: [id number]: 1 [] lidocaine (PF) 10 mg/mL (1 %) 40 mg, triamcinolone acetonide 40 mgDisp: Rfl: Prescriptions as of 02/04/2019 Sig: PAROXETINE 20 MG TABLET Take 20 mg by mouth once valentin* Problem List As Of Date 02/04/2019 Noted Resolved Rotator cuff tendonitis, right [M75.81] INVALID FOR* Impingement syndrome of right shoulder [M75.41] INVALID FOR* Prescriptions ordered this encounter Disp Refills Start End 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 Follow-up and Disposition History Recorded Encounter Status:Closed by MICKI BARAHONA MD on 02/04/19 Normal [facility] PROGRESSon 02-04-2019 Protein mass conc HNO ID: [id number] Author: Micki Barahona Service: ? Author Type: Physician Type: Progress Notes Filed: 02/04/2019 9:46 AM Note Text: Assessment/Primary Diagnosis: (M75.81) Rotator cuff tendonitis, right (primary encounter diagnosis) (M75.41) Impingement syndrome of right shoulder Fellow/resident history and physical examination reviewed and confirmed by the attending physician. The attending physician obtained additional history and performed focused physical examination. All imaging and laboratory studies were reviewed by the attending physician with fellow/resident and the patient. Treatment care plan discussed with the fellow/resident and completely explained to the patient. The attending physician was present for and supervised any injections. All of the patient's questions were answered by the attending physician. Normal [facility] Protein mass conc HNO ID: [id number] Author: Micki Barahona Service: ? Author Type: Physician Type: Progress Notes Filed: 02/04/2019 9:46 AM Note Text: Micki Barahona M.D. iron erector Director,[facility] [address] [place] [address]. [place] [address] INITIAL ENCOUNTER Chief Complaint: Right shoulder pain HPI: Kamilla Figueroa is self-referred for evaluation of the above problem. Kamilla Figueroa is a 58 year old female who presents with the above complaint. Hand dominance: Right. Patient presents to clinic for the first time for elevation of right shoulder pain. Patient says no traumatic injury to the shoulder. Pain prevents her from going to sleep. Pain is worse with overhead activity. Patient has not had any steroid injections or physical therapy. Taking aspirin for pain intermittently. She denies having any neck pain, radicular pain, numbness/tingling in the arm. Patient does not note any associated mechanical symptoms. History of prior injury or surgery opposite shoulder: No. Is this a [facility] injury? : No. REVIEW OF SYSTEMS: Constitutional: patient denies any recent fever or significant change in weight Cardiovascular: patient denies any chest pain at rest Respiratory: patient denies any shortness of breath or cough Gastrointestinal: patient denies any current abdominal discomfort Integumentary: patient denies any recent skin changes Musculoskeletal: as noted in the HPI Neurologic: as noted in the HPI Endocrine: patient denies a current diagnosis of diabetes Hematologic/Lymphatic : patient denies any easily bleeding, any recent infection and denies any recent observable lymph node enlargement Psychologic: negative for any recent depression or anxiety issues No family history on file. No past medical history on file. No past surgical history on file. ALLERGIES Allergen Reactions - Sulfa (Sulfonamide * Unknown Problem List: reviewed and updated. Contributory Co-morbidities: Evaluated and managed. 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 Social History Socioeconomic History Marital status: Spouse name: Not on file Number of children: Not on file Years of education: Not on file Highest education level: Not on file Social Needs Financial resource strain: Not on file Food insecurity - worry: Not on file Food insecurity - inability: Not on file Transportation needs - medical: Not on file Transportation needs - non-medical: Not on file Occupational History Not on file Tobacco Use Smoking status: Not on file Substance and Sexual Activity Alcohol use: Not on file Drug use: Not on file Sexual activity: Not on file Other Topics Concerns: Not on file Social History Narrative Not on file Current Outpatient Medications: PARoxetine (PAXIL) 20 mg tablet Take 20 mg by mouth once daily. No current facility-administered medications for this visit. Physical Exam: There were no vitals taken for this visit. Constitutional: Pleasant, well-appearing, no acute distress. Resp: breathing is unlabored without audible wheeze Vascular: Normal pedal and radial pulses, no cyanosis, no venous stasis changes Skin: No overlying skin change, ecchymosis, or erythema. Psychiatric: Pleasant, direct, appropriate mood and affect General Orthopaedic Examination: Ambulates well. No other major joint abnormalities noted. 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 Pulses: 2+ radial, ulnar; hands warm bilat, <2sec CRCompartments: soft and compressible Cervical Spine:Appropriate range of motion, negative midline and paraspinal muscle tenderness, negative stepoff, and negative Spurling's test. Focused Upper Extremity Musculoskeletal/Neuro logic Exam: Right Shoulder Examination Well appearing, no acute distress Visual inspection of the shoulder reveals no significant atrophy ROM examination - FF - Passive 180, Active 160 limited by pain Abd - Passive 180, Active 160 meters by pain ER - Passive 50, Active 50 IR - upper lumbar Palpation reveals pain at the greater tuberosity. No tenderness palpation of the acromial clavicular joint, glenohumeral joint or biceps tendon Deltoid motor intact ant, middle, and posterior - Belly press - ER Lag Sign 5/5 Resisted Abduction in the plane of the scapula (supra) 5/5 Resisted ER with arm at 0 degrees of abduction (infra) 5/5 Resisted ER with arm at 90 degrees of abduction (teres minor) - Drop Arm + Neer Impingement + Saucedo Froy Sensation intact to Axillary, Median, Ulnar, Radial Nerves Motor to Axillary, Median, Ulnar, Radial Nerves intact Pulses 2/4 radial bilaterally with brisk capillary refill Negative speed's and Yergason's. No Luis M deformity Radiographic studies: Patient denied x-rays today. Assessment/Primary Diagnosis: (M75.81) Rotator cuff tendonitis, right (primary encounter diagnosis) (M75.41) Impingement syndrome of right shoulder Plan/Medical Decision Making: The nature of the problem and all indicated treatment options available were discussed in detail with the patient. I have recommended: 1. Medication: OTC NSAIDS/anaglesics as directed, in the absence of medical contraindication 2. Test(s)/Imaging/Refer ral(s): None 3. Intervention: Risks, benefits, alternatives and expected outcomes of injection were discussed. After verbal consent, allergy check, time out and site identification, under aseptic conditions the Right shoulder subacromial space was injected with 4 cc 1% lidocaine and 40 mg kenalog. A sterile bandage was applied. The procedure was tolerated well. Icing instructions were given.The patient is instructed to call the office with any adverse reactions. and Graduated physical therapy program 4. Follow-up: As needed. If no improvement of symptoms we can consider an MRI All of Kamilla Figueroa questions were answered today. She expressed a clear understanding of our discussion and is in agreement with the outlined treatment plan. Arsenio Osborne MD CC:No Pcp Normal [facility] ED Visit Summaryon 7 ED Visit Summary [facility] Patient: KAMILLA FIGUEROA [address] [facility] MR#: [id number] [place], [place] [address] : 1960 OrdCindy Castillo: Dept: Emergency Department Loc: 1EDA ER Physician Documentation Service Dt: 04/17/17 Report#: [id number] Adm Dt: 04/17/17 Dis Dt: 04/17/17 Patient Information - Chief Complaint Initial Complaint: ALLERGIC REACTION BEE STING,SOB - Allergies Allergies/Adverse Rxn: Allergies ciprofloxacin Adverse Reaction (Verified 12/13/16 11:56) Hives Sulfa (Sulfonamide Antibiotics) Adverse Reaction (Verified 12/13/16 11:31) Hives - History of Present Illness Initial Comments: 04/17/17 14:06 Patient is a 48-year-old female with a history of bee sting allergies and presents after being stung by a bee. She denies any itching or rash. She is anxious, hyperventilating on arrival but is also able to speak comfortably in complete sentences. She has no swelling of her tongue or lips. She took her EpiPen at home and also took [id number] Benadryl, 50 mg, prior to arrival. - Review of Systems Constitutional: Positive: other (Allergic reaction) EENTM: Positive: no symptoms reported Respiratory: Positive: no symptoms reported Cardiac (ROS): Positive: no symptoms reported ABD/GI: Positive: no symptoms reported : Positive: no symptoms reported Musculoskeletal: Positive: no symptoms reported Skin: Positive: no symptoms reported Neurological: Positive: no symptoms reported Endocrine: Positive: no symptoms reported Hematologic/Lymphatic : Positive: no symptoms reported Psychiatric: Positive: no symptoms All Other Systems: Reviewed and Negative - Physical Exam General appearance: Positive: alert, in no apparent distress, anxious, other (Hyperventilating) HEENT: Positive: head normal inspection, PERRL, EOMI, mucous membranes moist Neck: Positive: Supple, no thyromegaly Respiratory: Positive: normal lung sounds bilaterally, other (No wheezes, rhonchi, rales. The patient is breathing noticeably loudly, but when asked to open her mouth and breathe normally, there is no stridor noted) Cardiovascular: Positive: regular rate, normal rhythm, tachycardia GI/Abdominal: Positive: soft, nontender, nondistended, no organomegaly palpable, normal bowel sounds Extremities: Positive: full ROM Neurological: Positive: alert, oriented X3, CN II-XII intact Integumentary: Positive: warm, dry, intact, other (Area of erythema to the forearm which is location of bee sting) Psychiatric: Positive: normal affect, normal mood - Social Medical History Smoking Status: Never smoker Drug Use: No GI Hx: Gall Bladder Removed, GERD Psych Hx: Anxiety, Depression - Family History Father Family Hx: Other - Vital Signs Vitals: Vital Signs Temp Pulse Resp BP Pulse Ox 04/17/17 14:15 80 16 04/17/17 13:58 36.2 C L 73 18 124/75 98 - MDM/Admission Progress Note MDM Note: 04/17/17 15:26 Patient remained stable in the emergency department. She is much improved after medications repeat examination shows no evidence of acute allergic reaction. Lungs are clear, there is no oropharyngeal edema, and no rash. She'll be discharged home and her EpiPen is represcribed, as was a prescription for prednisone and Pepcid. - Critical Care Time Total Critical Care Time (min): 0 ED Physician Disposition - Clinical Impression Clinical Impression: Acute allergic reaction Qualifiers: Encounter type: initial encounter Qualified Code(s): T78.40XA - Allergy, unspecified, initial encounter - Disposition Disposition: TO HOME Discharged With/To: A Relative - Discharge Instructions: Allergies (ED), Urticaria (ED) Prescriptions/Orders: Epinephrine [Epipen 2-Jose] 0.3 mg IM ONCE PRN #1 auto.injct PRN Reason: Anaphylaxis Famotidine [Pepcid] 20 mg PO Q12 #10 tab predniSONE [Prednisone] 20 mg PO Q12 #10 tab Time of Disposition: 15:29 Normal [facility] Vital Signs Date Time Vital Sign Value Performing Clinician Daina hansen 03-30-2022 21:39-0400 Diastolic blood pressure 82 mm[Hg] [facility] Work Phone: 03-30-2022 21:39-0400 Heart rate 61 /min [facility] Work Phone: 03-30-2022 21:39-0400 Respiratory rate 14 /min [facility] Work Phone: 03-30-2022 21:39-0400 SaO2% (BldA) [Mass fraction] 94 % [facility] Work Phone: 03-30-2022 21:39-0400 Systolic blood pressure 145 mm[Hg] [facility] Work Phone: 03-30-2022 18:56-0400 Body height 160.02 cm [facility] Work Phone: 03-30-2022 18:56-0400 Body mass index (BMI) [Ratio] 28.5 kg/m2 [facility] Work Phone: 03-30-2022 18:56-0400 Body temperature 98.1 [degF] [facility] Work Phone: 03-30-2022 18:56-0400 Body weight 73.2 kg [facility] Work Phone: Encounters Encounter Date Encounter Type Care Provider Facility Start: 06-24-2025 ambulatory [facility] Facility:[facility] Start: 03-30-2024 End: 03-30-2024 Letter encounter Cory Greene MD Work Phone: [facility] Start: 11-20-2023 End: 11-20-[address] [facility] Work Phone: Start: 11-20-2023 End: 11-20-2023 Patient encounter [address] [facility] Work Phone: Start: 12-24-2022 Letter encounter Cory Greene MD Work Phone: [facility] Start: 06-24-2022 Letter encounter Cory Greene MD Work Phone: [facility] Start: 04-01-2022 Letter encounter Cory Greene MD Work Phone: [facility] Start: 03-30-2022 End: 03-30-2022 Emergency department patient visit [facility] Start: 04-17-2017 End: 04-17-2017 Emergency department patient visit [facility] Facility[facility] Start: 08-26-2016 End: 08-26-2016 Emergency department patient visit [facility] Facility:[facility] Procedures Date Procedure Procedure Detail Performing Clinician Khoi Avendano DO Plan of Treatment Date Care Activity Detail Author Start: 11-25-2025 Tetanus vaccination Tetanus (Td or Tdap) Booster [facility] Start: 2023 Pneumococcal vaccination Pneumococcal Vaccine(s) (65+ yrs) (1 of 1 - PCV) [facility] Start: 2023 Screening for osteoporosis Bone Densitometry [facility] Start: 06-15-2023 COVID-19 Vaccine ( season) COVID-19 Vaccine ( season) [facility] Start: 07-15-2022 Influenza vaccination Influenza Vaccine (#1) [facility] Start: 2018 Hepatitis B (HBV) Vaccine (optional start 60+ years) Hepatitis B (HBV) Vaccine (optional start 60+ years) [facility] Start: 2018 RSV vaccine (optional 60+ years) RSV vaccine (optional 60+ years) [facility] Start: 12-21-2016 Cholesterol [Mass/volume] in Serum or Plasma Cholesterol [facility] Start: 06-13-2014 Screening for malignant neoplasm of breast Mammography [facility] Start: 2008 Measurement of occult blood in single stool specimen FIT [facility] Start: 2008 Screening for malignant neoplasm of colon CRC Screening [facility] Start: 2008 Shingles (RZV) Vaccine (1 of 2) Shingles (RZV) Vaccine (1 of 2) [facility] Start: 2003 Screening for malignant neoplasm of colon [facility] Start: 1979 Screening for malignant neoplasm of cervix Pap Smear [facility] Start: 1977 Hepatitis A (HAV) Vaccine (optional start 19+ years) Hepatitis A (HAV) Vaccine (optional start 19+ years) [facility] Start: 1976 Hepatitis C screening Hepatitis C Antibody [facility] Start: 1963 COVID-19 Vaccine (#1) COVID-19 Vaccine (#1) [facility] Start: 03-23-1959 COVID-19 Vaccine (#1) COVID-19 Vaccine (#1) [facility] Start: 1960 Screening for malignant neoplasm of colon [facility] Patient Education ED General All ergic Reactions [facility] Work Phone: Patient referral [facility] Work Phone: Immunizations Immunization Date Immunization Notes Care Provider Fa cility 11-25-2015 tetanus toxoid, redu marta diphtheria toxoid, and acellular pertussis vaccine, adsorbed Shanail Jc GALLEGOS Work Phone: [facility] Payers Date Payer Category Payer Medicare [id number] 2025 Self-pay [id number] 2009 Unknown [employer] - HMO/PPO/POS SUPERMED PPO/CLASSIC/PLUS [id number] 2009-Present [address] [place] [address] PPO [id number] Unknown [id number] Unknown [id number] Social History Date Type Detail Facility Start: 03-30-2022 End: 03-30-2022 Tobacco smoking status SCIS Unknown if ever smoked [facility] Start: 12-25-2018 Non-smoker [facility] Start: 1960 Sex Assigned At Female [facility] Start: 08-09-2011 Tobacco smoking status NHIS Never smoked tobacco [facility] Work Phone: Start: 11-25-2015 Alcohol intake Current drinke r of alcohol (finding) [facility] Start: 08-09-2011 History SDOH Alcohol Comment glass of wine daily [facility] Start: 1960 Sex Assigned At Not on file [facility] Start: 02-19-2017 History of Social function [facility] Start: 02-19-2017 Tobacco use panel [facility] NEGATED: Highlighted row - - [facility] Work Phone: Medical Equipment Procedure Code Equipment Code Equipment Origin al Text Equipment Identifier Dates Capsulectomy, breast, with implant removal ELIAZAR 3GRM HEMOSTAT ABS FDA Start: 12-24-2018 Capsulectomy, breast, with implant removal ELIAZAR 3GRM HEMOSTAT ABS FDA Start: 12-24-2018 Capsulectomy, breast, with implant removal ELIAZAR 3GRM HEMOSTAT ABS FDA Start: 12-24-2018 Capsulectomy, breast, with implant removal ELIAZAR 3GRM HEMOSTAT ABS FDA Start: 12-24-2018 Indications: Diabetes. prediabetes [id number] Start: 02-17-2016 1 Package daily. Prediabetes. Check prn symptoms [id number] Start: 02-17-2016 Functional Status Date Assessment Result Facility NEGATED: Highlighted row Functional performance Functional status health issues are not documented Disease [facility] Work Phone: Mental Status Date Assessment Result Facility NEGATED: Highlighted row Cognitive function [Interpretation] Cognitive status health issues are not documented Disease [facility] Work Phone: Evaluation note Note Date & Type Note Facility Evaluation note No assessment information availa ble [facility] Work Phone: Hospital Discharge instructions Note Date & Type Note Facility Hospital Discharge instructions Additional Instructions Benadryl 25 mg every 6 hours until symptoms are fully resolved. 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 No March 30 6:03pm Chief Complaint and Reason for Visit Chief Complaint BEE STING Chief Complaint EORDER Additional Source Comments INFORMATION SOURCE (unrecogn ized section and content) DATE CREATED AUTHOR 04/10/2018 [facility] DATE CREATED AUTHOR AUTHOR'S ORGANIZ ATION 04/10/2018 [facility] DATE CREATED AUTHOR AUTHOR'S ORGANIZ ATION 04/03/2019 [facility] DATE CREATED AUTHOR AUTHOR'S ORGANIZ ATION 06/14/2019 [facility] DATE CREATED AUTHOR AUTHOR'S ORGANIZ ATION 06/27/2025 [facility] Goals (unrecognized section and content) Goals may be documented in a n alternate sectionGoals may be documented in an alternate section Care Teams (unrecognized sec tion and content) Commercial Fisher Relationship Specialty Start Date End Date Cory Greene MD [address] [facility] [place] [address] PCP - General Internal Medicine 10/03/12 Commercial Fisher Relationship Specialty Start Date End Date Cory Greene MD [address] [facility] [address] [address] [place] [address] PCP - General Internal Medicine 10/03/12 Team Status: Active Member Role Status Dates Dr. Elbert Galan MD Family Provider Active Dr. Elbert Galan MD Primary Care Provider Activ e Team Status: Inactive Member Role Status Dates Dr. Elbert Galan MD Primary Care Provider, Attending Provider, Referring Provider Active Commercial Fisher Relationship Specialty Start Date End Date Cory Greene MD [address] [facility] [place] [address] PCP - General Internal Medicine 10/03/12 FOR RECORDS PERTAINING TO PATIENTS WHO ARE OR HAVE BEEN ENROLLED IN A CHEMICAL DEPENDENCY/SUBSTANCEABUSE PROGRAM, SOME INFORMATION MAY BE OMITTED. This clinical summary was aggregated from multiple sources. Caution should be exercised in using it in the provision of clinical care. This summary normalizes information from multiple sources, and as a consequence, information in this document may materially change the coding, format and clinical context of patient data. In addition, data may be omitted in some cases. CLINICAL DECISIONS SHOULD BE BASED ON THE PRIMARY CLINICAL RECORDS. [employer] provides no warranty or guarantee of the accuracy or completeness of information in this document.
== END | disposition home or self-care (01) ==
PROVIDERS: PCP Family Medicine; Referring Provider Family Medicine; Visit Provider Family Medicine
DX: R10.9 Unspecified abdominal pain (principal)
CPT/HCPCS: 74177; Q9967; A4216